=== PATIENT | male | born 1940 | race Caucasian/White ===

== ENCOUNTER 2018-09-30 20:02 | Emergency (ER) | payer MEDICARE, SELFPAY ==
[2018-09-30 20:02] VITALS: BP 175/96; PULSE 70; RESP 18; TEMP 37.8; O2SAT 96; BMI 36.0
--- NOTE | 2018-09-30 20:12 | EKG12_ITS ---
Test Reason : CP Blood Pressure : / mmHG Vent. Rate : 070 BPM Atrial Rate : 070 BPM P-R Int : 230 ms QRS Dur : 102 ms QT Int : 362 ms P-R-T Axes : 051 -64 086 degrees QTc Int : 390 ms Sinus rhythm with 1st degree A-V block Left axis deviation Minimal voltage criteria for LVH, may be normal variant Septal infarct , age undetermined Abnormal ECG Confirmed by BOO SHEPPARD, EMMA ([id number]), food editor GRACIELA GIMENEZ ([id number]) on 10/01/2018 1:46:48 PM Referred By: CARLEY Confirmed By:EMMA HADDAD MD
--- NOTE | 2018-09-30 20:15 | RAD_ITS ---
STUDY: X-RAY CHEST REASON FOR EXAM: Male, 77 years old. Chest tightness and cough TECHNIQUE: Single frontal view of the chest. COMPARISON: None. FINDINGS: Median sternotomy wires. The lungs are clear and expanded. There is no demonstrated pleural abnormality. Prominent cardiac silhouette. Normal mediastinum and bette. Normal visualized pulmonary arteries. There is atherosclerotic tortuosity of the aortic arch and descending thoracic aorta. Normal visualized thoracic spine. There is degenerative osteoarthritis of the bilateral shoulders. There is no demonstrated abnormality of the visualized soft tissue structures of the upper abdomen. RAD/Chest 1 View (Portable) IMPRESSION: No acute pulmonary findings. Electronically Signed: Nuno Navarro MD at 20:30 EDT Tel , Service support ,
--- NOTE | 2018-09-30 20:16 | ED.RN ---
NO OLD EKGS IN MUSE
[2018-09-30 20:27] VITALS: PULSE 74; RESP 16
[2018-09-30] MEDS: Ipratropium/Albuterol Sulfate 3 ML AMPUL.NEB INHALATION (20:27)
[2018-09-30 20:50] VITALS: O2SAT 95
[2018-09-30] MEDS: 0.9% Normal Saline 1,000 ML 100 ML IV (20:51)
--- NOTE | 2018-09-30 21:09 | ED.VIS.GEN ---
History of Present Illness Chief Complaint: Chest Pain Informant: Patient Onset: Today Context: Gradual Onset Timing: Continuous Current Severity: Mild Maximum Severity: Moderate Narrative: The patient presents to the emergency department cough and shortness of breath. He states for the past 10 days, he had upper respiratory symptoms. He states he has had a lot of nasal drainage and posterior throat drainage. He states today, he had a lot of drainage and felt like he was choking. He states he felt like he could not get the mucus up and felt tightness across his chest. He states that his cough has been worsening. He denies any exertional pain. The pain was fleeting and he now feels back to normal. He does have history of prior valve repair. He is not on anticoagulants. Prior similar symptoms: No Recent Illness/Hospitalization: No Past Medical History - Allergies and Home Meds Allergies/Adverse Reactions: Allergies No Known Allergies Allergy (Verified 09/30/18 20:02) Primary Care Physician: Azar Corbett MD [Primary Care Provider] - Prior records reviewed: Yes Past Medical History: - - Past medical history reviewed Lives: With Family Smoking Status: Never smoker Alcohol: Occasional Drugs: None Review of Systems General: Reports: Malaise Eyes: Denies: Visual changes - bilaterally, Diplopia ENT: Reports: Rhinorrhea Cardiovascular: Reports: Chest pain Respiratory: Reports: Cough Gastrointestinal: Denies: Abdominal pain, Nausea, Vomiting, Diarrhea, Melena, Hematochezia Genitourinary: Denies: Dysuria, Hematuria, Frequency Musculoskeletal: Denies: Back pain, Extremity Pain Skin: Denies: Rash, Wounds Neurological: Denies: Headache, Weakness, Numbness Endocrine: Denies: Polyuria Hematologic: Denies: Easy bruising Physical Exam Vital Signs/Narrative: Vital Signs Temp Pulse Resp BP Pulse Ox 09/30/18 20:50 95 09/30/18 20:27 74 16 09/30/18 20:02 100.0 F H 70 18 175/96 H 96 Inital Vital Signs reviewed: Yes General: Well nourished, Well developed, No Acute Distress Head: Normocephalic, Atraumatic Eyes: Perrl, EOMI ENT: Moist mucous membranes, No rhinorrhea Neck: Supple, Nontender Cardiovascular: Regular rate, Regular rhythm, No murmurs Respiratory: No distress, Chest nontender, Wheezing. Negative for: CTA bilaterally Abdomen: Soft, Nontender, Nondistended, Normal bowel sounds Back: Nontender, Normal Inspection Extremities: Nontender, No edema Skin: Normal color, No rash Neurological: Alert, Oriented x3, Cranial nerves II-XII grossly intact, Normal Strength, Normal Sensation Psychological: Normal affect, Normal Mood Diagnostic/Tx/Re-eval Chest X-Ray - ED: 2 View, Normal, Heart, Lungs Clinical Impression(s) from Imaging Studies Chest X-Ray 09/30/18 20:15 IMPRESSION: No acute pulmonary findings. Electronically Signed: Nuno Navarro MD at 20:30 EDT Tel , Service support , Abnormal Lab Results 09/30/18 09/30/18 09/30/18 20:41 20:41 20:41 WBC 10.0 RBC 5.63 Hgb 17.3 H Hct 51.6 MCV 91.7 MCH 30.7 MCHC 33.5 RDW 13.2 RDW Differential 43.7 Plt Count 208 MPV 10.7 Immature Gran % (Auto) 0.400 Neut % (Auto) 64.2 Lymph % (Auto) 19.9 Republic % (Auto) 9.6 Eos % (Auto) 5.4 H Baso % (Auto) 0.5 Absolute Neuts (auto) 6.4 Absolute Lymphs (auto) 1.99 Total Counted Not Reportable Sodium 136 Potassium 4.3 Chloride 104 Carbon Dioxide 27.0 Anion Gap 5 BUN 28 H Creatinine 1.19 Estim Creat Clear Calc 47.06 Est GFR (MDRD) Af Amer 76 Est GFR (MDRD) Non-Af 63 BUN/Creatinine Ratio 23.5 H Glucose 108 H Lactic Acid 1.3 Calcium 9.3 Troponin I < 0.015 - Rhythm Strip Rhythm Strip: Sinus Rhythm Ectopy: None - EKG Initial EKG Interpretation: Sinus Rhythm, No Acute Injury Pattern Prior: Unchanged - Medical Decision Making The patient symptoms to see primary pulmonary. He has coarse lung sounds with some wheezing throughout. His x-ray does not show focal infiltrative process. He has mild leukocytosis. He was given an nebulized breathing treatment. He had marked improvement of his aeration. Cardiac enzymes are normal. His EKG was unchanged. The patient was able to ambulate through the emergency department without hypoxia or dyspnea. At this point, I am going to treat him for an infectious bronchitis given his low-grade fever and productive sputum. He will be kept on prednisone, antibiotics, and an inhaler. He is comfortable with this plan of care. ED Disposition - Plan for ED Patient: Disposition: Home or Assisted Living Diagnosis: Acute bronchitis Instructions: Acute Bronchitis Prescriptions: Prednisone [Deltasone] 60 mg PO DAILY #15 tab Prescription Printed levoFLOXacin tablet [Levaquin] 500 mg PO DAILY #6 tab Prescription Printed Referrals: Azar Corbett MD [Primary Care Provider] -
[2018-09-30 21:10] LABS: Absolute Lymphocyte Count 1.99 X10^3/ul (0.83-4.51); Absolute Neutrophil Count 6.4 X10^3/uL (2.0-7.7); Basophil# 0.05 X10^3/uL; Basophil% 0.5 % (0-1); Eosinophil# 0.54 X10^3/uL; Eosinophils% 5.4 % (0-5); Hematocrit 51.6 % (40-54); Hemoglobin 17.3 g/dl (13.0-16.5); Lymphocyte # 1.99 X10^3/ul (4.0); Lymphocyte % 19.9 % (19-41); Mean Corp Hgb Conc 33.5 g/gl (32-36); Mean Corpuscular Hgb 30.7 pg (27.0-32.0); Mean Corpuscular Volume 91.7 fL (80-94); Mean Platelet Vol. 10.7 fl (6.2-12.0); Monocyte# 0.96 X10^3/uL; Monocyte% 9.6 % (0-10); Neutrophil % 64.2 % (47-70); Platelet Count 208 K/mm3 (150-450); RBC Distribution Width CV 13.2 % (11.6-14.6); RBC Distribution Width SD 43.7 fl (35.1-43.9); Red Blood Count 5.63 M/mm3 (4.6-6.2)
[2018-09-30 21:11] LABS: POSITIVE COUNT NO; POSITIVE DIFFERENTIAL NO; POSITIVE MORPHOLOGY NO
[2018-09-30 21:16] LABS: BUN 28 mg/dL (7-18); Creatinine, Serum 1.19 mg/dL (0.70-1.30); Glucose 108 mg/dL (74-106)
[2018-09-30 21:17] LABS: Anion Gap 5 (5-15); BUN/Creat Ratio 23.5 RATIO (10-20); Calcium,Total 9.3 mg/dL (8.5-10.1); Chloride 104 mmol/L (98-107); EST Glomerular Filtration Rate 63 mL/min (>60); Est Glom Filt Rate - Afr Amer 76 mL/min (>60); Estimated Creatinine Clearance 47.06 ml/min; Potassium 4.3 mmol/L (3.5-5.1); Sodium Level 136 mmol/L (136-145)
[2018-09-30 21:24] VITALS: BP 117/76; PULSE 66; RESP 18; O2SAT 95
[2018-09-30 21:30] LABS: Lactic Acid 1.3 mmol/L (0.4-2.0)
[2018-09-30 21:56] VITALS: O2SAT 96
[2018-09-30] MEDS: predniSONE 20 MG Tablet 60 MG PO (22:30)
[2018-09-30] MEDS: levoFLOXacin 500 MG Tablet PO (22:30)
[2018-09-30 22:36] VITALS: BP 128/72; PULSE 65; RESP 16; O2SAT 95
--- NOTE | 2018-09-30 22:42 | ED.RN ---
REVIEWED D/C INSTRUCTIONS, FOLLOW UP CARE, PRESCRIPTIONS AND S/S THAT WOULD WARRANT A RETURN TO THE ED WITH PT. PT VERBALIZED AN UNDERSTANDING AND DENIES FURTHER QUESTIONS FOR THIS RN. PT SKIN P/W/D, RESP EVEN AND UNLABORED, PT A&O X 3, NO DISTRESS NOTED. PT AMBULATED OUT OF ED, GAIT STEADY.
== END 2018-09-30 22:44 | disposition home or self-care (01) ==
LOC: ED 20:43
PROVIDERS: Emergency Provider Emergency Medicine; Family Provider Family Medicine; PCP Family Medicine
DX: J20.9 Acute bronchitis, unspecified (principal)
CPT/HCPCS: 36415; 71045; 80048; 83605; 84484; 85025; 87040; 93005; 94640; 96360; 96361; 99285; J7030; A4216

== ENCOUNTER 2019-11-26 12:12 | Observation (INO) | payer MEDICARE, SELFPAY ==
--- NOTE | 2019-11-17 10:47 | EKG12_ITS ---
Test Reason : PREOP Blood Pressure : / mmHG Vent. Rate : 061 BPM Atrial Rate : 061 BPM P-R Int : 368 ms QRS Dur : 106 ms QT Int : 386 ms P-R-T Axes : 028 -58 115 degrees QTc Int : 388 ms Sinus rhythm with 1st degree A-V block Left axis deviation Septal infarct , age undetermined Abnormal ECG Confirmed by BOO SHEPPARD, EMMA ([id number]), make up editor KOKO COX ([id number]) on 11/18/2019 9:21:57 AM Referred By: Joel Corbett Confirmed By:EMMA HADDAD MD
[2019-11-17 11:12] LABS: Absolute Lymphocyte Count 2.67 X10^3/uL (0.83-4.51); Absolute Neutrophil Count 6.3 X10^3/uL (2.0-7.7); Basophil% 0.9 % (0-1); Eosinophil# 0.92 X10^3/uL; Eosinophils% 8.6 % (0-5); Hematocrit 51.1 % (40-54); Hemoglobin 16.7 g/dL (13.0-16.5); Lymphocyte # 2.67 X10^3/ul (4.0); Lymphocyte % 24.9 % (19-41); Mean Corp Hgb Conc 32.7 g/dL (32-36); Mean Corpuscular Hgb 30.4 pg (27.0-32.0); Mean Corpuscular Volume 93.1 fL (80-94); Mean Platelet Vol. 10.3 fl (6.2-12.0); Monocyte# 0.72 X10^3/uL; Monocyte% 6.7 % (0-10); NRBC Flagged by Analyzer 0 % (0-5); Neutrophil # 6.27 X10^3/uL (2.7-7.7); Neutrophil % 58.5 % (47-70); Platelet Count 267 K/mm3 (150-450); RBC Distribution Width CV 13.3 % (11.6-14.6); RBC Distribution Width SD 44.9 fl (35.1-43.9); Red Blood Count 5.49 M/mm3 (4.6-6.2); White Blood Count 10.7 K/mm3 (4.4-11.0)
[2019-11-17 12:09] LABS: Anion Gap 5 (5-15); BUN 29 mg/dL (7-18); BUN/Creat Ratio 24.6 RATIO (10-20); Calcium,Total 9.4 mg/dL (8.5-10.1); Chloride 100 mmol/L (98-107); Creatinine, Serum 1.18 mg/dL (0.70-1.30); EST Glomerular Filtration Rate 63 mL/min (>60); Est Glom Filt Rate - Afr Amer 76 mL/min (>60); Glucose 107 mg/dL (74-106); Potassium 4.4 mmol/L (3.5-5.1); Sodium Level 135 mmol/L (136-145)
--- NOTE | 2019-11-17 20:28 | HP.PCM_ITS ---
History and Physical History and Physical [facility] Patient Name: Beto Kate : 1940 From: RYAN LIAO PA-C DATE OF SURGERY: 11/26/2019 SCHEDULED PROCEDURE: right total hip arthroplasty HISTORY OF PRESENT ILLNESS: Preoperative history and physical exam was performed on November 17, 2019. This is an 78-year-old male who presents today for preoperative visit for an upcoming right total hip arthroplasty. Patient has had ongoing pain for the past several months which has been progressively been getting worse. Pain has been intermittent, aching, sharp. He has increased pain going up and down stairs and walking. Pain can reach 7/10 with activities. He has increased pain and difficulty getting up from seated position. He does have start up pain. Patient's pain is located in his groin. He denies any low back pain or numbness and tingling. Patient has attempted Celebrex, tramadol, rest with minimal relief. He uses a wheelchair on occasion. He has been using a cane for ambulatory assistance. He currently denies any chest pain, shortness of breath, fevers chills, or recent infections. We are obtaining surgical clearance from his primary care physician Dr. Azar Corbett. Patient also has been seen in the past for his heart with previous heart stent and valve replacement in 2007. Patient sees Dr. Medina who is his [facility] psychiatrist. After failing conservative measures and discussing treatment options with Dr. Joel Corbett, the patient does wish to proceed with a right total hip arthroplasty. REVIEW OF SYSTEMS: ROS: Const: Denies change in appetite, fever and weight change. CV: Denies chest pain, heart murmur and irregular heartbeat. Resp: Denies cough, pneumonia, shortness of breath, tuberculosis and wheezing. GI: Denies constipation, diarrhea, heartburn, nausea, rectal itching, bloody stools and vomiting. : Denies incontinence. Musculo: Reports trouble walking and weakness, but denies leg swelling and pain. Skin: Denies Raynaud's, history of shingles and tattoo. Neuro: Denies ambulatory dysfunction, dizziness, numbness/tingling and tremor. Psych: Denies anxiety, insomnia and stress. Rafy/Lymph: Denies anemia, bleeding/bruising tendency and past transfusion. Reviewed, no changes. PAST MEDICAL HISTORY: Advance Care Plan: No Advance Directives Effective Date: 11/13/2019 PMH: Medical Problems: Arthritis, Cancer, Coronary Artery Disease (CAD), Hard of Hearing Accidents: Fracture - (1977) SKULL Surgical Hx: Heart Stent - (2007) Heart Valve Replacement - (2018) Artery Clean Out Anesthesia Complications: None Assistive Devices: Glasses, Hearing Aid, Cane Reviewed, no changes. SOCIAL HISTORY: SH: Marital: .Occupation: Retired.Work Status: Retired.Hand Dominance: Right- handed. Personal Habits: Cigarette Use: Never Smoked Cigarettes.Smokeless Tobacco: Never Used Smokeless Tobacco.E-Cigarette Use: Never used.Alcohol: Daily.Drug Use: Denies Use.Enjoy Exercising: Exercises 1-3 X/Week. Reviewed, no changes. VITALS: Ht: 64 Wt: 225lb Wt k.060 BMI: 38.6 BP: 138/82 Pulse: 61 Resp: 14 T: 96.9 T: 36.1C ALLERGIES: No Known Drug Allergy MEDICATIONS: Celecoxib 200 mg Take 1 capsule by mouth 2 times daily, Nabumetone 500 mg Take 1 tablet by mouth 2 times daily, Lisinopril 10 mg take 1 tablet by mouth daily, Metoprolol Tartrate 25 mg take 1 tablet by mouth twice a day, Rosuvastatin Calcium 40 mg take 1 tablet by mouth once daily, Fenofibric Acid 135 mg take 1 tablet by mouth once daily, Aspirin Adult 325 mg Take 325 mg by mouth daily, Latanoprost 0.005 % 1 drop nightly, Timolol Maleate 0.5 % (Daily) daily, Tramadol HCL 50 mg 1-2 by mouth every 6 hours as needed pain PRE-OP EXAM: General appearance:NORMAL Other: Eyes: Conjunctivae and lids: NORMAL Pupils: ERR Ears, Nose, Mouth, and Throat: NORMAL Other: Inspection of lips, teeth and gums: NORMAL Other: Neck: Examination of neck: no masses noted. Respiratory: Assessment of respiratory effort: NORMAL Other: Auscultation of lungs: clear to auscultation no wheezes, rhonchi or rales. Cardiovascular: Auscultation of heart: regular rate and rhythm, positive systolic murmur, Exam of carotid arteries: NORMAL Other: Gastrointestinal: Exam of abdomen: soft, nontender, nondistended bowel sounds present. PHYSICAL EXAMINATION: Patient walks with an antalgic gait with use of a cane. Right hip is cool to touch without erythema or signs of infection. Patient does have obligatory external rotation with flexion. Range of motion: Flexion 75, internal rotation to degrees, external rotation 15. He has increased pain with active range of motion and passive range of motion of the hip. Sensation intact to light touch. Neurovascularly intact. IMAGING STUDIES: X-rays of the right hip reveal joint space narrowing with subchondral sclerosis, osteophyte formation consistent with severe osteoarthritis with associated subchondral cysts in both the femoral head and acetabular weightbearing area. IMPRESSION: 1. Severe right hip osteoarthritis 2. Coronary artery disease 3. Previous prostate cancer 4. Heart stent and heart valve replacement 2007 PLAN: Dr. Joel Corbett did discuss and review with the patient all treatment options including surgical versus nonsurgical options. Patient does wish to proceed with the above-stated procedure. Potential risks, benefits, and complications of the procedure were discussed in detail including but not limited to , infection, nerve and blood vessel damage, persistent pain, numbness, tingling, paresthesias, blood clot, pulmonary embolism, and requirement for possible further surgery. The patient expressed full understanding and has no further questions for the doctor. Patient does agree to proceed with the above-stated procedure and has signed the surgery consent form. We discussed the current risks associated with COVID 19. This does include the risk of exposure while in the hospital. Patient was reassured local hospitals have low infection rates and are taking all necessary precautions to avoid exposure to patients. In addition, we discussed strategies that can be used to help limit exposure including those that limit the patient's time in the hospital. Also using strategies to limit the patient's need for continued inpatient services after being discharged from the hospital. Patient was notified that we will need to comply with any screening or testing the hospital wishes to perform or that surgery may be delayed for any positive results. This dictation was created using voice recognition software. Phonetic and/or grammatical errors may exist. ___ I have re-examined the patient. There are no clinical changes since date of exam. ___ See progress notes for changes. ___ Dictated on admission Date: Time: Signature:
[2019-11-18 08:06] LABS: Magnesium 2.4 mg/dL (1.6-2.6)
[2019-11-26] VITALS (14 sets, daily range): BP systolic 95–157; BP diastolic 57–98; PULSE 66–82; RESP 15–18; TEMP 36–37.2; O2SAT 87–100; BMI 35.2
[2019-11-26] MEDS: Acetaminophen 500 MG Tablet 1000 MG PO ×2 (09:21→17:15)
[2019-11-26] MEDS: Gabapentin 600 MG Tablet PO (09:22)
[2019-11-26] MEDS: Celecoxib 200 MG Capsule 400 MG PO (09:22)
[2019-11-26] MEDS: Lactated Ringers 1,000 ML 999 ML IV ×2 (09:25→12:45)
[2019-11-26 09:35] LABS: Bedside Glucose 183 mg/dL (70-110)
[2019-11-26] MEDS: Insulin Lispro 100 UNIT/ML INSULN.PEN SC (09:54)
[2019-11-26] MEDS: Lactated Ringers 1,000 ML 75 ML IV (10:30)
[2019-11-26] MEDS: Cefazolin 2 GM in 0.9% Normal Saline 100 ML IV (10:37)
--- NOTE | 2019-11-26 10:45 | RAD_ITS ---
STUDY: X-RAY - PELVIS AND RIGHT HIP REASON FOR EXAM: Male, 78 years old. RT TOTAL ANTERIOR HIP. 5.4 SEC FL. TECHNIQUE: 1 views of the pelvis and hip. COMPARISON: None. FINDINGS: Intraoperative imaging provided for right hip replacement. There is good alignment. RAD/Hip 1 view with Pelvis IMPRESSION: Status post right total hip replacement. There is good alignment. Electronically Signed: Ayan Ryo, at 12:37 EDT , Service support ,
--- NOTE | 2019-11-26 12:16 | PCM.OPRPT ---
Report of Operation Date of Procedure: 11/26/19 Pre-Operative Diagnosis: Right hip primary osteoarthritis Post-Operative Diagnosis: Right hip primary osteoarthritis Surgery/Procedure Performed:: Minimally invasive direct anterior right total hip replacement Description of Surgical Findings:: Stable hip with equal leg lengths [employer] vice principal: Lucía Muro Type of Anesthesia:: General Anesthesiologist: Zeeshan Jennings Special Medications: 2 g Ancef, 1 g TXA at incision, 1 g TXA closure, 10 mg Decadron, joint cocktail (5 mg Duramorph, 30 mL of 0.5% Ropivicaine, 1000 units of epinephrine, 30 mg of Toradol) Specimen's removed: Bony cuts Estimated Blood Loss (mL): 200 Fluids Replaced: 1000 mL crystalloid Description of Procedure: Components used: 1. Accolade 2 Ema femoral stem size 5 127? 2. [place] trident 2 acetabular shell size 52 mm 3. [place] X3 polyethylene E 4. Ema Biolox delta 36mm, -5mm femoral head Brief history operative indications: 78 yo m who failed conservative measures for their hip osteoarthritis. X-rays were consistent with osteoarthritis including joint space narrowing, osteophyte formation and subchondral cysts. Total hip replacement was discussed with the patient with risks and benefits including but not limited to blood loss, DVTs, PEs, neurovascular damage, dislocation, general risks of anesthesia including loss of life. Patient demonstrated an understanding medical clearance is obtained the patient was consented for surgery. Procedure: On the date of procedure the patient's R hip was marked in the preoperative area. Patient was then taken back to the operating room where anesthesia assumed control of the C-spine and airway and administered anesthetic. Patient was transferred to the operating table and placed in the supine position. The hips were placed at the break of the bed and a sacral bump was placed. The R lower extremity was then prepped out in a sterile fashion using chlorhexidine while the surgeon scrubbed. The PA was vital in the positioning of the patient. Upon reentering the room the R lower extremity was draped in the standard orthopedic fashion and the incision was marked. A timeout was called and everyone agreed upon the side, the site, the procedure be performed, antibody given, and patient's identity. At this time incision was made through skin, subcutaneous tissue, and fat down to fascia. The fascia was then incised and the TFL was retracted laterally. A retractor was placed on the lateral border of the femoral neck. Attention was directed to the inferior portion of the approach and all crossing vessels were identified and appropriately coagulated. A retractor was then placed on the medial portion of the femoral neck. The anterior capsule was then cleared of all soft tissue and then H shaped capsulotomy was made. The retractors were then placed inside the capsule. The femoral neck was identified and a cleanup cut was made. At this time a power corkscrew was used to remove the femoral head. Attention was then turned toward the acetabulum where the soft tissues were appropriately retracted and the acetabulum was sequentially reamed to 52 mm. A 52 mm cup was then selected and impacted into place. Acetabular liner was impacted into place and locking mechanism was verified. The position of the acetabular cup was then verified under live fluoroscopy. Attention was then turned to the femur. Soft tissue releases on the medial and lateral femoral neck were appropriately done, the leg was externally rotated and lateralized. A Calixto retractor was placed medially and proximally to the greater trochanter this allowed appropriate visualization and exposure of the femoral canal. Rongeour was then used to remove excess lateral bone. A canal finder and entry broach were used to open the proximal canal. Once we verified we were down the femoral canal we subsequently broached up to a size 5 femur. The appropriate neck was placed in the previously selected head was trialed with a -5 mm neck. Traction was pulled and the hip was reduced with internal rotation. Once it was appropriately reduced and stability was checked. There was minimal shuck, equal leg lengths and appropriate stability with hyperextension and external rotation as well as with 90? flexion and internal rotation. Fluoroscopy was then also used to verify the position of the components and leg lengths using the contralateral side for comparison. The trial components were then dislocated the proximal femur was again exposed and the components were removed from the wound. The final components were verified and opened. The wound was copiously irrigated out with normal saline. The acetabulum was checked for any residual debris. The final components were placed and impacted. Traction and internal rotation were again used to reduce the hip. After adequate reduction the hip remained stable with appropriate leg lengths. The final components were once again checked with live fluoroscopy and were found to be satisfactory. The wound was then copiously irrigated with normal saline once more, and hemostasis was obtained. Closure was then done using #1 Vicryl runner to close the fascia. A 2-0 vicryl interuppted sutures were used to close the subcutaneous skin. A 3-0 Monocryl and Steri-Strips were used for final skin closure. A Silverlon dressing was placed. Patient was awakened by anesthesia and transferred to the [facility]. Patient was then transferred to the PACU for recovery. Postoperative plan: Patient will get 24 hours postop antibiotics. Patient will get in-house physical therapy and will be weight-bear as tolerated. Patient will follow up in office in 2 weeks for a wound check and x-rays. - Complications No intraoperative complications - Admit VTE Documentation VTE Present on Admission: No VTE Mechan Device Prophylaxis: SCD's, Thigh High CHIP Hose VTE Pharm Prophylaxis ordered?: Yes
--- NOTE | 2019-11-26 13:10 | RAD_ITS ---
STUDY: X-RAY - PELVIS AND RIGHT HIP REASON FOR EXAM: Male, 78 years old. POST OP RIGHT TOTAL HIP ANTERIOR APPROACH TECHNIQUE: 2 views of the pelvis and hip. COMPARISON: Comparison is made with prior examination done earlier today. FINDINGS: There is a non-specific bowel gas pattern. Surgical clips are seen overlying the left inguinal region. The patient is status post right total hip replacement. There is good alignment. Postoperative soft tissue changes. RAD/Hip Min 2 Views (Portable) IMPRESSION: Status post right total hip replacement. There is good alignment. Postoperative soft tissue changes. Electronically Signed: Ayan Roy, at 13:43 EDT , Service support ,
[2019-11-26 13:46] LABS: Bedside Glucose 137 mg/dL (70-110)
[2019-11-26] MEDS: Lactated Ringers 1,000 ML 125 ML IV ×2 (14:00→16:54)
[2019-11-26] MEDS: Aspirin 81 MG TAB.CHEW PO (17:15)
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
[2019-11-26] MEDS: Ensure Surgery 237 ML LIQUID PO (18:11)
[2019-11-26] MEDS: Cefazolin 1 GM/50 ML BAG IV (18:20)
[2019-11-26] MEDS: Ketorolac 15 MG/ML Vial IV (21:56)
[2019-11-26] MEDS: Atorvastatin Calcium 80 MG Tablet PO (21:57)
[2019-11-26] MEDS: Senna/Docusate Sodium 1 Tablet 2 TABLET PO (21:57)
[2019-11-26] MEDS: Latanoprost 0.005% 1 Bottle 1 DRP EACH EYE (21:58)
[2019-11-26] MEDS: Timolol 0.5% 5ML OPTH.BTL 1 DRP EACH EYE (21:59)
[2019-11-26] MEDS: Metoprolol Tartrate 25 MG Tablet PO (22:00)
[2019-11-27 01:59] VITALS: BP 120/66; PULSE 68; RESP 18; TEMP 36.9; O2SAT 99
[2019-11-27] MEDS: Acetaminophen 500 MG Tablet 1000 MG PO ×2 (02:02→10:19)
[2019-11-27] MEDS: Cefazolin 1 GM/50 ML BAG IV (02:03)
[2019-11-27 06:42] LABS: Hematocrit 36.2 % (40-54); Hemoglobin 11.2 g/dL (13.0-16.5); Mean Corp Hgb Conc 30.9 g/dL (32-36); Mean Corpuscular Hgb 30.2 pg (27.0-32.0); Mean Corpuscular Volume 97.6 fL (80-94); Mean Platelet Vol. 10.4 fl (6.2-12.0); Platelet Count 186 K/mm3 (150-450); RBC Distribution Width CV 13.6 % (11.6-14.6); Red Blood Count 3.71 M/mm3 (4.6-6.2); White Blood Count 11.7 K/mm3 (4.4-11.0)
[2019-11-27 07:08] LABS: Anion Gap 6 (5-15); BUN 27 mg/dL (7-18); Calcium,Total 7.7 mg/dL (8.5-10.1); Chloride 105 mmol/L (98-107); EST Glomerular Filtration Rate 76 mL/min (>60); Est Glom Filt Rate - Afr Amer 92 mL/min (>60); Estimated Creatinine Clearance 55.08 ml/min; Glucose 102 mg/dL (74-106); Potassium 4.3 mmol/L (3.5-5.1); Sodium Level 133 mmol/L (136-145)
--- NOTE | 2019-11-27 07:33 | PCM.PN.ORT ---
Subjective: The patient was sitting in bedside chair upon examination. Patient denies any chest pain, shortness of breath, dizziness, lightheadedness, nausea or vomiting, or calf pain. Pain is controlled on medications. No adverse overnight events. Patient states his right hip is doing very well and he has minimal pain. Patient was up walking yesterday the halls. Patient does wish to try to go home today. Objective: Vital signs stable and afebrile. Patient is able to plantarflex and dorsiflex actively. Sensation is intact to light touch to saphenous, sural, superficial and deep peroneal, and tibial distribution. Dressing is clean dry and intact. Negative Homans bilaterally, negative signs and symptoms of DVT. - Physical Exam Vitals/I&O's: Vital Signs Temp Pulse Resp BP Pulse Ox 98.4 F 68 18 120/66 99 11/27/19 01:59 11/27/19 01:59 11/27/19 01:59 11/27/19 01:59 11/27/19 01:59 Oxygen Flow Rate (L/min) 2 Oxygen Delivery Method Nasal Cannula Weight: 101.9 kg Body Mass Index (BMI) 35.2 Finger Stick Blood Glucose 137 Intake and Output for Last 24 Hours 11/25/19 11/26/19 11/27/19 23:59 23:59 23:59 Intake Total 4744.33 / 4744.33 1160.42 / 1160.42 Output Total 400 / 400 300 / 300 Balance 4344.33 / 4344.33 860.42 / 860.42 General: Alert, Oriented x3, Cooperative, No apparent distress Laboratory Results 11/26/19 09:20: POC Glucose 183 H 11/26/19 13:32: POC Glucose 137 H 11/27/19 06:14: WBC 11.7 H, RBC 3.71 L, Hgb 11.2 L, Hct 36.2 L, MCV 97.6 H, MCH 30.2, MCHC 30.9 L, RDW Std Deviation 49.0 H, RDW Coeff of Dre 13.6, Plt Count 186, MPV 10.4 11/27/19 06:14: Sodium 133 L, Potassium 4.3, Chloride 105, Carbon Dioxide 22.0, Anion Gap 6, BUN 27 H, Creatinine 1.00, Estim Creat Clear Calc 55.08, Est GFR (MDRD) Af Amer 92, Est GFR (MDRD) Non-Af 76, BUN/Creatinine Ratio 27.0 H, Glucose 102, Calcium 7.7 L Current Medications Acetaminophen (Tylenol) 1,000 mg PO Q8H [facility] Last Admin: 11/27/19 02:02 Dose: 1,000 mg Documented by: Aspirin (Ecotrin) 325 mg PO BID [facility] Atorvastatin Calcium (Lipitor) 80 mg PO QHS [facility] Last Admin: 11/26/19 21:57 Dose: 80 mg Documented by: Celecoxib (Celebrex) 200 mg PO DAILY [facility] Enteral Nutritional Formula (Ensure Surgery) 237 ml PO TIDCM [facility] Last Admin: 11/26/19 18:11 Dose: 237 ml Documented by: Famotidine (Pepcid) 20 mg PO DAILY [facility] Fenofibrate ([facility]or) [facility] Insulin Human Lispro (Humalog Kwikpen ([facility])) 1 - 6 unit SC Q4H PRN PRN; Protocol PRN Reason: BG>/= 180, SEE PROTOCOL Last Admin: 11/26/19 09:54 Dose: 1 unit Documented by: Ketorolac Tromethamine (Toradol ([facility])) 15 mg IV Q6H PRN PRN PRN Reason: Pain Score 1-5/10 Last Admin: 11/26/19 21:56 Dose: 15 mg Documented by: Latanoprost (Xalatan Opthalmic) 1 drop EACH EYE QHS [facility] Last Admin: 11/26/19 21:58 Dose: 1 drop Documented by: Lisinopril (Zestril) 10 mg PO DAILY [facility] Metoprolol Tartrate (Lopressor (Beta Eve)) 25 mg PO BID [facility] Last Admin: 11/26/19 22:00 Dose: 25 mg Documented by: Morphine Sulfate () 2 - 4 mg IV Q2H PRN PRN PRN Reason: Pain Score 4-10/10 Ondansetron HCl (Zofran) 4 mg IV Q8H PRN PRN PRN Reason: NAUSEA Oxycodone HCl (Oxyir) 5 - 10 mg PO Q4H PRN PRN PRN Reason: Pain Score 4-10/10 Promethazine HCl (Phenergan) 12.5 mg IM Q6H PRN PRN; Protocol PRN Reason: NAUSEA/VOMITING Senna/Docusate Sodium (Senokot-S, [place]-Colace) 2 tablet PO BID [facility] Last Admin: 11/26/19 21:57 Dose: 2 tablet Documented by: Timolol Maleate (Timoptic) 1 drop EACH EYE BID [facility] Last Admin: 11/26/19 21:59 Dose: 1 drop Documented by: Medical Necessity - Tobacco Use Smoking Status: Never smoker Tobacco Use: Non-smoker Assessment/Plan 1. S/P right direct anterior total hip arthroplasty POD #1 2. Continue Pain Medications: Tylenol and OxyIR 3. DVT Prophylaxis: Aspirin 325 mg twice daily for 4 weeks postoperatively. 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 I explained to him that we will do twice daily for 4 weeks and then he can go back to his once daily after that. 4. PT/OT: Weightbearing as tolerated 5. H & H: 11.2/36.2, asymptomatic. Secondary to acute blood loss from surgery 6. Reactive leukocytosis: Currently 11.7, afebrile. Patient did receive Decadron intraoperatively 7. Continue postoperative medical management per medicine: Appreciate assistance with managing patient while in hospital 8. Encouraged Incentive Spirometry 9. Disposition: Plan will be for possible discharge home today as long as patient is medically stable and pain is well controlled and tolerating physical therapy. Prescriptions will be E scribed to eric lakhani in [facility]. Patient will follow-up per postop instructions. He does have outpatient physical therapy established. I have reviewed the [place] Automated Rx Reporting System (OARRS) report for this patient for refill pattern and other prescriber involvement as part of the appropriate surveillance for the provision of acute and chronic controlled medications. The report was requested and reviewed on the date of this entry and was considered in the prescribing process.
--- NOTE | 2019-11-27 07:40 | DCINST_ITS ---
Discharge Diet: No Restrictions Discharge Activity: May Not Drive - while taking narcotic pain medications. May shower in (days): 3 - Dressing must be intact to skin. Turned dressing away from water Ice area for (Minutes): 20 - Every 1-2 hours while awake Weight Bearing Status: Weight bearing as tolerated Elevate: Operative Extremity Additional Activity Instructions:: Wear elastic stockings for 2 weeks. DO NOT use alcohol with narcotic pain medication. DO NOT make important decisions while taking narcotic medication. If you have problems with taking your medication (rash, itching, nausea, etc.) call the office at once. Call your doctor if your incision/area has: Increased Pain/ Swelling, Increased Redness, Foul Smelling Discharge Call your doctor if you observe: Fever of 101 or Higher Remove Dressing in (days):: 4 - Okay to remove dressing on December 01, 2019 Additional Instructions: Follow orthopedic postop instructions Allergies/Adverse Reactions: Allergies No Known Allergies Allergy (Verified 11/17/19 14:47) Medications to take at Discharge Latanoprost 0.005% [Xalatan Opthalmic] 1 drp EACH EYE QHS 09/30/18 Lisinopril [Prinivil] 10 mg PO DAILY 09/30/18 Metoprolol Tartrate 25 mg PO BID 09/30/18 Timolol 0.5% [Timoptic] 1 drp EACH EYE BID 09/30/18 Fenofibric Acid (Choline) [Fenofibric Acid] 135 mg PO DAILY 11/17/19 Rosuvastatin Calcium [Crestor] 40 mg PO DAILY 11/17/19 Acetaminophen [Tylenol] 1,000 mg PO Q8H #100 tab 11/27/19 Aspirin E.C. [Ecotrin] 325 mg PO BID tablet 11/27/19 Famotidine [Pepcid] 20 mg PO DAILY #30 tab 11/27/19 Oxycodone [Oxyir] 5 - 10 mg PO Q4H PRN PRN 4 Days #48 tab 11/27/19 Senna/Docusate Sodium [Senokot-S] 2 tab PO BID #10 tab 11/27/19 The following prescriptions were given: Oxycodone [Oxyir] 5 - 10 mg PO Q4H PRN PRN 4 Days #48 tab PRN Reason: Pain Score 4-10/10 Prescription Printed Famotidine [Pepcid] 20 mg PO DAILY #30 tab Transmission Status: Pending to [facility] Senna/Docusate Sodium [Senokot-S] 2 tab PO BID #10 tab Transmission Status: Pending to [facility] Acetaminophen [Tylenol] 1,000 mg PO Q8H #100 tab Transmission Status: Pending to [facility] Primary Care Physician: Azar Corbett MD [Primary Care Provider] - Test Results: Test results from this visit will be discussed in further detail at your follow- up appointment, if applicable. Please Follow Up With: [facility] When: 12/02/19 @ 8:30 am Please Follow Up With: Sawyer Cancino PA-C When: 12/10/19 @ 9:15 am
[2019-11-27 07:42] VITALS: BP 104/68; PULSE 75; RESP 18; TEMP 36.8; O2SAT 92
[2019-11-27 07:45] VITALS: RESP 18; O2SAT 92
[2019-11-27] MEDS: Fenofibrate 145 MG Tablet PO (07:48)
[2019-11-27 07:49] VITALS: BP 104/68; PULSE 75
[2019-11-27] MEDS: Metoprolol Tartrate 25 MG Tablet PO (07:49)
[2019-11-27] MEDS: Famotidine 20 MG Tablet PO (07:49)
[2019-11-27] MEDS: Ensure Surgery 237 ML LIQUID PO (07:49)
[2019-11-27] MEDS: Senna/Docusate Sodium 1 Tablet 2 TABLET PO (07:50)
--- NOTE | 2019-11-27 10:15 | CASEMGMT ---
EDMUND HERNANDEZ Face to Face with patient for initial transition planning/care coordination assessment. RN CM introduced self and role at [facility]. Patient lying in bed, alert and oriented. Patient willing to participate in assessment and is able to answer all questions appropriately. Care providers, pharmacy, and demographics verified. Patient wishes to discharge home and is setup with [facility] for outpatient therapy. Patient states he has no further needs or concerns at this time. CM to follow for discharge planning needs that may arise. PCP: Azar Corbett Specialists: norris Corbett Pharmacy: [facility] Insurance: [place] [employer] Prescription Benefit: yes Living Will/HPOA: yes, son Michael Kate LNOK: son, girlfriend Living Arrangements: Patient lives alone in 1 story home with 2 steps and railing to enter the home. Girlfriend will be staying with patient for a few days. Patient was independent at home prior to surgery. Transportation: Girlfriend [facility]: Patient states he has a shower chair, raised toilet, walker, grab bars, and wheelchair. Patient is setup with [facility] for outpatient therapy starting Sunday. Disposition Plan: Patient to discharge home with outpatient therapy, family support, and folllow-up plans in place. Leilani CORTEZ, RN, CM
[2019-11-27] MEDS: Timolol 0.5% 5ML OPTH.BTL 1 DRP EACH EYE (10:19)
[2019-11-27] MEDS: Aspirin E.C. 325 MG Tablet PO (10:26)
[2019-11-27] MEDS: Lisinopril 10 MG Tablet PO (10:26)
--- NOTE | 2019-11-27 11:08 | PN_ITS ---
<Marlo Horne - Last Filed: 11/27/19 11:08> Reason for Visit: No complaints. Significant pain this AM however improved with pain meds now resolved. No fever/chills. No cough/sob. No abd pain, nausea, or vomiting. Vitals/I&O's: Vital Signs Temp Pulse Resp BP Pulse Ox 98.3 F 75 18 104/68 92 11/27/19 07:42 11/27/19 07:49 11/27/19 07:45 11/27/19 07:49 11/27/19 07:45 Oxygen Flow Rate (L/min) 2 Oxygen Delivery Method Room Air Weight: 224 lb 10.417 oz Body Mass Index (BMI) 35.2 Finger Stick Blood Glucose 137 Intake and Output for Last 24 Hours 11/25/19 11/26/19 11/27/19 23:59 23:59 23:59 Intake Total 4744.33 / 4744.33 1160.42 / 1160.42 Output Total 400 / 400 300 / 300 Balance 4344.33 / 4344.33 860.42 / 860.42 General: Alert, Oriented x3, Cooperative HEENT: Atraumatic, PERRLA, EOMI, Normocephalic Neck: Supple, No JVD, Negative Carotid Bruits Lungs: Clear to auscultation, Normal air movement Cardiovascular: Regular rate, No murmurs Abdomen: Bowel Sounds Present, Soft, Non Tender Extremities: No edema, Capillary Refill Less than 3 Seconds Skin: No rashes, No breakdown Musculoskeletal: No Tenderness to Palpation of Joints or Extremities Neurological: Cranial nerves II-XII grossly intact Psych/Mental Status: Normal Affect, Appropriate Laboratory Results 11/26/19 13:32: POC Glucose 137 H 11/27/19 06:14: WBC 11.7 H, RBC 3.71 L, Hgb 11.2 L, Hct 36.2 L, MCV 97.6 H, MCH 30.2, MCHC 30.9 L, RDW Std Deviation 49.0 H, RDW Coeff of Dre 13.6, Plt Count 186, MPV 10.4 11/27/19 06:14: Sodium 133 L, Potassium 4.3, Chloride 105, Carbon Dioxide 22.0, Anion Gap 6, BUN 27 H, Creatinine 1.00, Estim Creat Clear Calc 55.08, Est GFR (MDRD) Af Amer 92, Est GFR (MDRD) Non-Af 76, BUN/Creatinine Ratio 27.0 H, Glucose 102, Calcium 7.7 L Current Medications Acetaminophen (Tylenol) 1,000 mg PO Q8H [facility] Last Admin: 11/27/19 10:19 Dose: 1,000 mg Documented by: Aspirin (Ecotrin) 325 mg PO BID [facility] Last Admin: 11/27/19 10:26 Dose: 325 mg Documented by: Atorvastatin Calcium (Lipitor) 80 mg PO QHS [facility] Last Admin: 11/26/19 21:57 Dose: 80 mg Documented by: Celecoxib (Celebrex) 200 mg PO DAILY [facility] Enteral Nutritional Formula (Ensure Surgery) 237 ml PO TIDCM [facility] Last Admin: 11/27/19 07:49 Dose: 237 ml Documented by: Famotidine (Pepcid) 20 mg PO DAILY [facility] Last Admin: 11/27/19 07:49 Dose: 20 mg Documented by: [facility] (T[facility]or) [facility] Last Admin: 11/27/19 07:48 Dose: 145 mg Documented by: Insulin Human Lispro (Humalog Kwikpen ([facility])) 1 - 6 unit SC Q4H PRN PRN; Protocol PRN Reason: BG>/= 180, SEE PROTOCOL Last Admin: 11/26/19 09:54 Dose: 1 unit Documented by: Ketorolac Tromethamine (Toradol ([facility])) 15 mg IV Q6H PRN PRN PRN Reason: Pain Score 1-5/10 Last Admin: 11/26/19 21:56 Dose: 15 mg Documented by: Latanoprost (Xalatan Opthalmic) 1 drop EACH EYE QHS [facility] Last Admin: 11/26/19 21:58 Dose: 1 drop Documented by: Lisinopril (Zestril) 10 mg PO DAILY [facility] Last Admin: 11/27/19 10:26 Dose: 10 mg Documented by: Metoprolol Tartrate (Lopressor (Beta Eve)) 25 mg PO BID [facility] Last Admin: 11/27/19 07:49 Dose: 25 mg Documented by: Morphine Sulfate () 2 - 4 mg IV Q2H PRN PRN PRN Reason: Pain Score 4-10/10 Ondansetron HCl (Zofran) 4 mg IV Q8H PRN PRN PRN Reason: NAUSEA Oxycodone HCl (Oxyir) 5 - 10 mg PO Q4H PRN PRN PRN Reason: Pain Score 4-10/10 Promethazine HCl (Phenergan) 12.5 mg IM Q6H PRN PRN; Protocol PRN Reason: NAUSEA/VOMITING Senna/Docusate Sodium (Senokot-S, [place]-Colace) 2 tablet PO BID [facility] Last Admin: 11/27/19 07:50 Dose: 2 tablet Documented by: Timolol Maleate (Timoptic) 1 drop EACH EYE BID [facility] Last Admin: 11/27/19 10:19 Dose: 1 drop Documented by: STROKE Vital Signs/Narrative: Vital Signs Temp Pulse Resp BP Pulse Ox 11/27/19 07:49 75 104/68 11/27/19 07:45 18 92 11/27/19 07:42 98.3 F 75 18 104/68 92 Medical Necessity - Tobacco Use Smoking Status: Never smoker Tobacco Use: Non-smoker Assessment/Plan 1. osteoarthritis s/p right hip replacement POD#1 - Per Dr. Corbett. Mild leukocytosis likely reactive to surgery, no evidence of infectious process at this time. 2. HTN - stable, continue home meds 3. HLD - statin DVT ppx: per ortho 80 mg asa bid Thank you for the opportunity to participate in the care of this patient. This patient was seen by Marlo Horne PA-C under the supervision of Dr. Rodriguez <Martha Rodriguez E - Last Filed: 11/27/19 11:49> Vitals/I&O's: Vital Signs Temp Pulse Resp BP Pulse Ox 98.3 F 75 18 104/68 92 11/27/19 07:42 11/27/19 07:49 11/27/19 07:45 11/27/19 07:49 11/27/19 07:45 Oxygen Flow Rate (L/min) 2 Oxygen Delivery Method Room Air Weight: 224 lb 10.417 oz Body Mass Index (BMI) 35.2 Finger Stick Blood Glucose 137 Intake and Output for Last 24 Hours 11/25/19 11/26/19 11/27/19 23:59 23:59 23:59 Intake Total 4744.33 / 4744.33 1160.42 / 1160.42 Output Total 400 / 400 300 / 300 Balance 4344.33 / 4344.33 860.42 / 860.42 Laboratory Results 11/26/19 13:32: POC Glucose 137 H 11/27/19 06:14: WBC 11.7 H, RBC 3.71 L, Hgb 11.2 L, Hct 36.2 L, MCV 97.6 H, MCH 30.2, MCHC 30.9 L, RDW Std Deviation 49.0 H, RDW Coeff of Dre 13.6, Plt Count 186, MPV 10.4 11/27/19 06:14: Sodium 133 L, Potassium 4.3, Chloride 105, Carbon Dioxide 22.0, Anion Gap 6, BUN 27 H, Creatinine 1.00, Estim Creat Clear Calc 55.08, Est GFR (MDRD) Af Amer 92, Est GFR (MDRD) Non-Af 76, BUN/Creatinine Ratio 27.0 H, Glucose 102, Calcium 7.7 L Current Medications Acetaminophen (Tylenol) 1,000 mg PO Q8H [facility] Last Admin: 11/27/19 10:19 Dose: 1,000 mg Documented by: Aspirin (Ecotrin) 325 mg PO BID [facility] Last Admin: 11/27/19 10:26 Dose: 325 mg Documented by: Atorvastatin Calcium (Lipitor) 80 mg PO QHS [facility] Last Admin: 11/26/19 21:57 Dose: 80 mg Documented by: Celecoxib (Celebrex) 200 mg PO DAILY [facility] Enteral Nutritional Formula (Ensure Surgery) 237 ml PO TIDCM [facility] Last Admin: 11/27/19 07:49 Dose: 237 ml Documented by: Famotidine (Pepcid) 20 mg PO DAILY [facility] Last Admin: 11/27/19 07:49 Dose: 20 mg Documented by: Fenofibrate (Tricor) [facility] Last Admin: 11/27/19 07:48 Dose: 145 mg Documented by: Insulin Human Lispro (Humalog Kwikpen ([facility])) 1 - 6 unit SC Q4H PRN PRN; Protocol PRN Reason: BG>/= 180, SEE PROTOCOL Last Admin: 11/26/19 09:54 Dose: 1 unit Documented by: Ketorolac Tromethamine (Toradol ([facility])) 15 mg IV Q6H PRN PRN PRN Reason: Pain Score 1-5/10 Last Admin: 11/26/19 21:56 Dose: 15 mg Documented by: Latanoprost (Xalatan Opthalmic) 1 drop EACH EYE QHS [facility] Last Admin: 11/26/19 21:58 Dose: 1 drop Documented by: Lisinopril (Zestril) 10 mg PO DAILY [facility] Last Admin: 11/27/19 10:26 Dose: 10 mg Documented by: Metoprolol Tartrate (Lopressor (Beta Eve)) 25 mg PO BID [facility] Last Admin: 11/27/19 07:49 Dose: 25 mg Documented by: Morphine Sulfate () 2 - 4 mg IV Q2H PRN PRN PRN Reason: Pain Score 4-10/10 Ondansetron HCl (Zofran) 4 mg IV Q8H PRN PRN PRN Reason: NAUSEA Oxycodone HCl (Oxyir) 5 - 10 mg PO Q4H PRN PRN PRN Reason: Pain Score 4-10/10 Last Admin: 11/27/19 11:23 Dose: 10 mg Documented by: Promethazine HCl (Phenergan) 12.5 mg IM Q6H PRN PRN; Protocol PRN Reason: NAUSEA/VOMITING Senna/Docusate Sodium (Senokot-S, [place]-Colace) 2 tablet PO BID [facility] Last Admin: 11/27/19 07:50 Dose: 2 tablet Documented by: Timolol Maleate (Timoptic) 1 drop EACH EYE BID [facility] Last Admin: 11/27/19 10:19 Dose: 1 drop Documented by: STROKE Vital Signs/Narrative: Vital Signs Pulse BP 11/27/19 07:49 75 104/68 Assessment/Plan Hospitalist note: I am seeing this patient in conjunction with Marlo Horne. I independently seen and examined the patient. Progress note above, laboratory data and imaging studies reviewed and I concur with above treatment plan. This morning, patient complained of right hip pain after physical therapy but improved with pain medicine. No other complaints. Vital signs are stable. - Physical Exam General: Alert, Oriented x3, Cooperative, No apparent distress. HEENT: Atraumatic, PERRLA, EOMI. Neck: Supple, No JVD, Negative Carotid Bruits, Trachea Midline, Thyroid Normal. Lungs: Clear to auscultation, Normal air movement, No rhonchi, No wheeze, No rales. Cardiovascular: Regular rate, Regular Rhythm, Normal S1, Normal S2, PMI Normal. Abdomen: Bowel Sounds Present, Soft, Non Tender, Non-Distended, No Hepato- splenomegaly. Extremities: No clubbing, No cyanosis, No edema Skin: No rashes, No breakdown Neurological: Cranial nerves are intact, neuro grossly intact Vital Signs are stable. #1 status post minimally invasive anterior right total hip replacement: This was done for osteoarthritis, postoperative day 1. Patient started physical therapy, pain is well controlled. He is on IV morphine and OxyIR PRN for pain. His vital signs are stable. Routine blood work from today reviewed, remarkable for mild leukocytosis and sodium of 133 which is chronic. Orthopedic surgery on the case and managing. For medical standpoint, patient is stable to be discharged home, no changes to his previous home medications. #2 other chronic medical problems: Stable, continue current medications as above. This note was generated with [employer] dictation software. It may contain incorrect words, spelling, and punctuation that were not noted in checking the note before signing. Inpatient E&M: 20606 Subs Hosp L2
[2019-11-27] MEDS: oxyCODONE 5 MG Tablet PO (11:23)
[2019-11-27 13:53] VITALS: BP 124/45; PULSE 87; RESP 18; TEMP 37.3; O2SAT 90
== END 2019-11-27 14:31 | disposition home or self-care (01) ==
LOC: SDC 14:31 → MS3 14:31
PROVIDERS: Anesthesiology; Physician Assistant Surgical; Admitting Provider Specialist; PCP Family Medicine; Referring Provider Specialist; Visit Provider Specialist
PROC: (CPT 27284; principal; 2019-11-26 10:20)
DX: M16.11 Unilateral primary osteoarthritis, right hip (principal); Z11.59 Encounter for screening for other viral diseases; R94.31 Abnormal electrocardiogram [ECG] [EKG]; I10 Essential (primary) hypertension; E78.5 Hyperlipidemia, unspecified; I25.10 Atherosclerotic heart disease of native coronary artery without angina pectoris; Z95.2 Presence of prosthetic heart valve; Z95.5 Presence of coronary angioplasty implant and graft; Z79.899 Other long term (current) drug therapy; Z85.46 Personal history of malignant neoplasm of prostate; Z79.82 Long term (current) use of aspirin
CPT/HCPCS: 01214; 27130; 36415; 73501; 73502; 76000; 80048; 82962; 83735; 85025; 85027; 87081; 87635; 93005; 94799; 96361; 96365; 96366; 96375; 97110; 97116; 97162; 97166; 97530; 99218; 99251; C1776; J7120; G0378; G0379; G0463; J2405; U0003

== ENCOUNTER 2019-11-30 12:46 | Emergency (ER) | payer MEDICARE, SELFPAY ==
[2019-11-26 15:04] VITALS: BMI 35.2
[2019-11-30 12:48] VITALS: BP 134/68; PULSE 80; RESP 18; TEMP 36.3; O2SAT 95; BMI 34.9
--- NOTE | 2019-11-30 12:55 | VDLE_ITS ---
Reason For Study: Swelling RIGHT LEFT GSV is normal. CFV is compressible, spontaneous, phasic, CFV is compressible, spontaneous, phasic, competent, and demonstrates normal competent and demonstrates normal augmentation. augmentation. FV is compressible, spontaneous, phasic, competent and demonstrates normal augmentation. POP V is compressible, spontaneous, phasic, competent and demonstrates normal augmentation. T/P Trunk is compressible. PTV is compressible. RT PerV is compressible. Procedure Exam performed portable in ED. A preliminary report was called and/or faxed to Dr. Ospina. Interpretation Summary There is no evidence of right lower extremity deep vein thrombosis. Right great saphenous vein appears patent and compressible segmentally. Normal flow patterns left common femoral vein Ordering Physician: Zeeshan Ospina Referring Physician: Azar Corbett Performed By: Gladis Hobson, BELLO, RVT
--- NOTE | 2019-11-30 13:06 | ED.VISSUMM ---
- ER Visit Summary Date of Service: 11/30/19 Chief Complaint: Right leg swelling History of Present Illness: The patient is a 78 M who presents with right leg swelling that was noticed today. Patient had recent right total hip replacement. Patient admits to some mild pain. Patient describes the pain is dull and tight. Patient states the pain is worse with certain movements. Patient denies any paresthesias or weakness. Patient denies any fevers or chills. Patient denies any chest pain or shortness of breath. Physical Examination: Vital signs are stable. Patient is afebrile. Patient is in no acute distress. Musculoskeletal exam reveals edema of the right thigh and lower leg. There is some mild tenderness. There is no bony crepitance or step-off. Pedal pulses are equal bilaterally. Sensation was intact light touch in all digits. There is good range of motion of the right knee and right ankle. Test Results: Venous duplex of the right lower extremity was obtained. There is no evidence of DVT. Emergency Department Course and Treatment: Patient was advised of his findings. Patient was instructed to keep his right leg elevated. Patient was instructed to follow-up with his primary care physician and orthopedic surgeon as scheduled. Patient understood and was agreeable with the plan. All questions were answered. Disposition: Discharge home Impression: Right leg edema This note was generated with [employer] dictation software. It may contain incorrect words, spelling, and punctuation that were not noted in review of the chart prior to signing ED Disposition - Plan for ED Patient: Disposition: Home or Assisted Living Diagnosis: Edema of right lower leg Instructions: ED Peripheral Edema, Unilateral Referrals: Azar Corbett MD [Primary Care Provider] - 5-7 Days
[2019-11-30 14:43] VITALS: RESP 16
== END 2019-11-30 14:43 | disposition home or self-care (01) ==
PROVIDERS: Emergency Provider Emergency Medicine; PCP Family Medicine
DX: R60.0 Localized edema (principal); M79.604 Pain in right leg; Z96.641 Presence of right artificial hip joint; E78.00 Pure hypercholesterolemia, unspecified; Z79.82 Long term (current) use of aspirin; Z79.899 Other long term (current) drug therapy
CPT/HCPCS: 93971; 99283

== ENCOUNTER 2019-12-24 08:44 | Emergency (ER) | payer MEDICARE, SELFPAY ==
[2019-12-24 08:45] VITALS: BP 143/63; PULSE 89; RESP 22; TEMP 35.8; O2SAT 93; BMI 34.3
[2019-12-24 08:50] VITALS: BP 143/63; PULSE 89; RESP 22; TEMP 35.8; O2SAT 93
--- NOTE | 2019-12-24 09:00 | EKG12_ITS ---
Test Reason : SOB Blood Pressure : / mmHG Vent. Rate : 085 BPM Atrial Rate : 085 BPM P-R Int : 358 ms QRS Dur : 106 ms QT Int : 342 ms P-R-T Axes : 017 -48 115 degrees QTc Int : 406 ms Sinus rhythm with 1st degree A-V block Left axis deviation Left ventricular hypertrophy with repolarization abnormality Cannot rule out Septal infarct , age undetermined Abnormal ECG Confirmed by BOO SHEPPARD, EMMA ([id number]), editor farm journal KOKO COX ([id number]) on 12/29/2019 2:15:08 PM Referred By: REYES Confirmed By:EMMA HADDAD MD
--- NOTE | 2019-12-24 09:02 | ED.VIS.GEN ---
History of Present Illness Chief Complaint: Shortness of Breath Detail of Chief Complaint: Dyspnea, dyspnea on exertion Informant: Patient, Significant Other Onset: Days Context: Sudden Onset Timing: Continuous Quality: Respiratory Location: Respiratory Current Severity: Mild Maximum Severity: Moderate Worsened by: Dyspnea with minimal exertion Relieved by: Better to resolved with rest Associated Symptoms: Cough that is nonproductive Narrative: Patient is an elderly male who had a total hip arthroplasty performed by Dr. Van Corbett on November 25. He presents because of low pulse ox and blood pressure at the physician's office. Per old records baseline blood pressure is 138/82. He does report chills without fever. He denies headache, visual, ocular auditory symptoms. He denies chest discomfort of any type. He denies black or maroon stool. He denies vomiting. He denies urologic symptoms. He was recently seen because of lower extremity swelling to evaluate for DVT, which was negative. He has no known exposure to COVID-19. He has a history of cancer, coronary disease and recent total hip arthroplasty. Based on review of medications he has history of glaucoma. Prior similar symptoms: No Recent Illness/Hospitalization: Yes - Past Medical History (1) History of coronary artery disease Status: Acute (2) History of glaucoma Status: Acute Past Medical History - Allergies and Home Meds Allergies/Adverse Reactions: Allergies No Known Allergies Allergy (Verified 12/24/19 08:47) Primary Care Physician: Azar Corbett MD [Primary Care Provider] - Prior records reviewed: Yes Surgical History: total hip arthroplasty, - - Aortic valve surgery Lives: Spouse/ Significant Other Smoking Status: Never smoker Alcohol: Rare Drugs: None Review of Systems Respiratory: Reports: Dyspnea, Cough, Dyspnea on exertion, Orthopnea - Two-pillow orthopnea, which is new. Denies: Sputum, Paroxysmal nocturnal dyspnea Gastrointestinal: Denies: Abdominal pain, Nausea, Vomiting, Diarrhea, Melena, Hematochezia Genitourinary: Denies: Dysuria, Hematuria, Frequency Musculoskeletal: Reports: Swelling. Denies: Myalgias, Arthralgias, Neck pain Skin: Denies: Rash, Wounds Neurological: Denies: Headache, Numbness Psych: Denies: Depression Endocrine: Denies: Polyuria, Polydipsia Hematologic: Denies: Easy bruising, Easy bleeding Allergy: Denies: Uticaria, Swelling of the mouth Physical Exam Vital Signs/Narrative: Vital Signs Temp Pulse Resp BP Pulse Ox 12/24/19 08:50 96.4 F L 89 22 H 143/63 H 93 12/24/19 08:45 96.4 F L 89 22 H 143/63 H 93 Inital Vital Signs reviewed: Yes General: Well nourished, Well developed, Acute Distress Head: Normocephalic, Atraumatic Eyes: Perrl, EOMI. Negative for: Pale conjunctiva, Scleral icterus ENT: Moist mucous membranes, TM's clear, Nasal congestion. Negative for: No rhinorrhea Neck: Supple, Nontender, No lymphadenopathy, No JVD Cardiovascular: Regular rate, Regular rhythm, No murmurs, Normal S1, Normal S2 Respiratory: Chest nontender, Rales, Wheezing, Diminished, - - Tory findings are right lower lobe posteriorly with egophony. There are a few crackles noted at the left base as well.. Negative for: No distress, CTA bilaterally Abdomen: Soft, Nontender, Nondistended, Normal bowel sounds, No masses. Negative for: Hepatomegaly, Splenomegaly, Mass, Pulsatile mass Rectal: Deferred Back: Nontender, Normal Inspection. Negative for: CVA tenderness Extremities: Nontender, Edema. Negative for: No edema Skin: Normal color, No rash, No Trauma. Negative for: Cyanosis, Diaphoresis, Jaundice Neurological: Alert, Oriented x3, Cranial nerves II-XII grossly intact, Normal Strength, Normal Sensation Psychological: Normal affect, Normal Mood Diagnostic/Tx/Re-eval Chest X-Ray - ED: 2 View, Read by ED Physician, - - View chest x-ray was interpreted by me at 0935. Multiple lesions consistent with metastatic cancer. Radiologist noted lesions in the vertebral body which I did not notice initially. Impressions Chest X-Ray 12/24/19 09:14 IMPRESSION: Multiple bilateral pulmonary nodules suggestive of metastatic disease. This is worse in the right hemithorax. Findings suggestive of sclerotic metastasis involving the vertebrae. Electronically Signed: Ayan Roy, at 9:33 EDT , Service support , Chest CT 12/24/19 09:50 IMPRESSION: Multiple bilateral pulmonary nodules throughout both lungs worse in the right hemithorax. Patchy areas of alveolar disease throughout both lungs more prominent on the right side. Electronically Signed: Ayan Roy, at 12:08 EDT , Service support , Abdomen/Pelvis CT 12/24/19 09:55 IMPRESSION: Multiple pulmonary nodules as described. Findings suggestive of ankylosing spondylitis. Electronically Signed: Ayan Roy, at 12:13 EDT , Service support , ADDENDUM: 12/24/19 1223 12/24/19 09:14 Chest PA and Lateral [RAD] Stat 12/24/19 09:50 CT Chest [Chest WITH Contrast] [CT] Stat 12/24/19 09:55 Abdomen/Pelvis WITH Contrast [CT] Stat Laboratory Results 12/24/19 12/24/19 12/24/19 08:55 08:55 08:55 WBC 13.2 H RBC 3.24 L Hgb 9.5 L Hct 32.0 L MCV 98.8 H MCH 29.3 MCHC 29.7 L RDW Std Deviation 58.6 H RDW Coeff of Dre 16.5 H Plt Count 402 MPV 10.5 Immature Gran % (Auto) 0.500 Neut % (Auto) 52.5 Lymph % (Auto) 17.4 L [place] % (Auto) 7.4 Eos % (Auto) 21.6 H Baso % (Auto) 0.6 Absolute Neuts (auto) 6.9 Absolute Lymphs (auto) 2.30 Nucleated RBC % 0 Differential Comment COMMENT Diff Path Review May foll Sodium 137 Potassium 4.1 Chloride 105 Carbon Dioxide 24.0 Anion Gap 8 BUN 31 H Creatinine 1.35 H Estim Creat Clear Calc 40.12 Est GFR (MDRD) Af Amer 65 Est GFR (MDRD) Non-Af 54 L BUN/Creatinine Ratio 23.0 H Glucose 135 H Calcium 8.6 Total Bilirubin 1.40 H AST 19 ALT 16 Alkaline Phosphatase 61 Troponin I < 0.015 B-Natriuretic Peptide 122.1 H Total Protein 7.1 Albumin 3.2 Globulin 3.9 Albumin/Globulin Ratio 0.8 L - Medical Decision Making Diagnosis includes congestive heart failure, pneumonia, atelectasis, viral upper respiratory infection. Patient had recent venous duplex study to rule out DVT. Because he reports orthopnea BNP and troponin were obtained to assess for congestive heart failure and cardiac ischemia. Chest x-ray and appropriate labs were ordered. Spoke with Dr. Florence. Patient is scheduled to see Dr. Sharita Cantor tomorrow. Dr. Hernandez for urology was contacted. He will see patient and perform orchiectomy for tissue diagnosis. ED Disposition - Plan for ED Patient: Disposition: Home or Assisted Living Diagnosis: Metastatic malignant neoplasm Instructions: ED Tumor [facility] Referrals: Azar Corbett MD [Primary Care Provider] - Serge Casillas MD [STAFF PHYSICIAN] - 12/25/19 Jaime Hernandez MD [STAFF PHYSICIAN] - 3-5 Days Joel Corbett MD [STAFF PHYSICIAN] - Additional Instructions: Dr. Casillas's office staff will contact you today to notify you time of appointment for tomorrow. Call Dr. Hernandez's office for appointment to be seen in 3 to 5 days and biopsy of left testicle
--- NOTE | 2019-12-24 09:14 | RAD_ITS ---
STUDY: X-RAY CHEST REASON FOR EXAM: Male, 79 years old. SOB AND LOW PULSE OX. RALES, WHEEZING AND EGOPHONY RIGHT LOWER LOBE. OPEN HEART 2011. TECHNIQUE: PA and lateral views of the chest. COMPARISON: Comparison is made with prior study dated 09/30/2018. FINDINGS: EKG electrodes are seen. At this time, multiple nodular densities seen in both lungs more prominent in the right hemithorax. Metastatic disease should be ruled out. There is no demonstrated pleural abnormality. Sternal cerclage wires are present from a prior sternotomy. The patient is status post mitral valve replacement. Normal mediastinum and bette. Normal visualized pulmonary arteries. There is atherosclerotic tortuosity of the aortic arch and descending thoracic aorta. There are diffuse degenerative changes of the visualized thoracic spine. Sclerotic lesions seen in the thoracic vertebrae. Normal visualized ribs, clavicles, and shoulders. There is no demonstrated abnormality of the visualized soft tissue structures of the upper abdomen. RAD/Chest PA and Lateral IMPRESSION: Multiple bilateral pulmonary nodules suggestive of metastatic disease. This is worse in the right hemithorax. Findings suggestive of sclerotic metastasis involving the vertebrae. Electronically Signed: Ayan Roy, at 9:33 EDT , Service support ,
[2019-12-24 09:23] LABS: Absolute Neutrophil Count 6.9 X10^3/uL (2.0-7.7); Basophil# 0.08 X10^3/uL; Basophil% 0.6 % (0-1); Differential Indicated SCAN CRITERIA MET; Eosinophil# 2.85 X10^3/uL; Eosinophils% 21.6 % (0-5); Hemoglobin 9.5 g/dL (13.0-16.5); Lymphocyte % 17.4 % (19-41); Mean Corp Hgb Conc 29.7 g/dL (32-36); Mean Corpuscular Hgb 29.3 pg (27.0-32.0); Mean Corpuscular Volume 98.8 fL (80-94); Mean Platelet Vol. 10.5 fl (6.2-12.0); Monocyte# 0.98 X10^3/uL; Monocyte% 7.4 % (0-10); NRBC Flagged by Analyzer 0 % (0-5); Neutrophil # 6.94 X10^3/uL (2.7-7.7); Neutrophil % 52.5 % (47-70); POSITIVE DIFFERENTIAL YES; Platelet Count 402 K/mm3 (150-450); RBC Distribution Width CV 16.5 % (11.6-14.6); RBC Distribution Width SD 58.6 fl (35.1-43.9); Red Blood Count 3.24 M/mm3 (4.6-6.2); White Blood Count 13.2 K/mm3 (4.4-11.0)
[2019-12-24 09:36] LABS: ALB/GLOB Ratio 0.8 RATIO (0.9-2.4); AST(SGOT) 19 U/L (15-37); Alanine Aminotransfer ALT/SGPT 16 U/L (16-61); Albumin, Serum 3.2 g/dL (3.2-5.0); Alkaline Phosphatase 61 U/L (45-117); Anion Gap 8 (5-15); BUN 31 mg/dL (7-18); Calcium,Total 8.6 mg/dL (8.5-10.1); Chloride 105 mmol/L (98-107); Creatinine, Serum 1.35 mg/dL (0.70-1.30); EST Glomerular Filtration Rate 54 mL/min (>60); Est Glom Filt Rate - Afr Amer 65 mL/min (>60); Estimated Creatinine Clearance 40.12 ml/min; Globulin 3.9 g/dL (2.2-4.2); Glucose 135 mg/dL (74-106); Potassium 4.1 mmol/L (3.5-5.1); Protein, Total 7.1 g/dL (6.4-8.2); Sodium Level 137 mmol/L (136-145)
--- NOTE | 2019-12-24 09:50 | CT_ITS ---
STUDY: CT CHEST WITH CONTRAST REASON FOR EXAM: Male, 79 years old. SOB, metastatic disease on CXR, staging. Prior hx prostate cancer 20 years ago with surgery only. Prior heart valve replaced, coronary stent, right hip replacement 3 weeks ago. RADIATION DOSAGE (If Supplied By Facility): CTDIvol = ( 18.81 ) mGy, DLP = ( 2376.47 ) mGycm TECHNIQUE: Transaxial imaging was performed following intravenous administration of Oral and amp; IV Gastrografin and amp; 100mL Isovue-300. Multiplanar coronal and sagittal images were reformatted. Individualized dose optimization techniques were used for this CT. COMPARISON: Comparison is made with prior chest radiograph done earlier today. FINDINGS: There are multiple bilateral pulmonary nodules within both lungs. There is also evidence of multiple areas of the focal alveolar disease scattered throughout both lungs more prominent in the right upper and right lower lobes. There is no demonstrated pleural abnormality. There are calcifications of the coronary arteries. Sternal cerclage wires are present from a prior sternotomy. Prior aortic valve replacement. Normal mediastinum. Normal hilar regions. Normal enhanced pulmonary arteries. There is atherosclerotic calcification of the aortic arch with tortuosity and elongation of the aortic arch and descending thoracic aorta. There are multi-level degenerative changes of the thoracic spine. Scattered focal areas of sclerosis seen throughout the thoracic vertebrae. 1.8 cm hypodensity in the right adrenal gland suggestive of a small adrenal adenoma. CT/Chest WITH Contrast IMPRESSION: Multiple bilateral pulmonary nodules throughout both lungs worse in the right hemithorax. Patchy areas of alveolar disease throughout both lungs more prominent on the right side. Electronically Signed: Ayan Roy, at 12:08 EDT , Service support ,
[2019-12-24 09:52] VITALS: BP 110/66; BP 143/63; PULSE 66; PULSE 89; RESP 16; RESP 22; TEMP 35.8; O2SAT 93
[2019-12-24 09:54] LABS: BNP,B-Type NATRIURETIC PEPTIDE 122.1 pg/mL (0-100)
--- NOTE | 2019-12-24 09:55 | CT_ITS ---
STUDY: CT ABDOMEN AND PELVIS WITH CONTRAST REASON FOR EXAM: Male, 79 years old. SOB, metastatic disease on CXR, staging. Prior hx prostate cancer 20 years ago with surgery only. Prior heart valve replaced, coronary stent, right hip replacement 3 weeks ago. RADIATION DOSAGE (If Supplied By Facility): CTDIvol = ( 18.81 ) mGy, DLP = ( 2376.47 ) mGycm TECHNIQUE: Transaxial images were obtained from the dome of the diaphragm to the symphysis pubis without oral contrast. Oral and amp; IV Gastrografin and amp; 100mL Isovue-300 was administered. Sagittal and coronal images were reconstructed. Individualized dose optimization techniques were used for this CT. COMPARISON: None. FINDINGS: Multiple nodules in both lower lobes with areas of alveolar infiltrates in both lower lobes worse on the right side. Minimal right pleural thickening. Coronary artery calcification. Normal liver. Normal gallbladder and extrahepatic biliary system. There is a 1.6 cm x 1.9 cm rim-enhancing nodule in the inferior medial aspect of the spleen. This may represent an hemangioma. Normal pancreas. There is a small, circumscribed, smooth, low attenuation right adrenal mass, consistent with an adrenal adenoma. It measures 1.3 cm. Normal left adrenal gland. Normal right kidney. Normal left kidney. Normal visualized stomach. Normal small intestine. Normal colon. The appendix is visualized and appears normal. There is diffuse atherosclerotic calcification of the abdominal aorta. 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 Small amount of the mural thrombus is seen. Normal inferior vena cava. There is borderline retroperitoneal lymphadenopathy with enlarged nodes no greater than 10mm in the short axis diameter. Normal urinary bladder. The patient is status post prostatectomy. Small inguinal hernias containing fat. There are diffuse degenerative changes of the visualized lumbar spine. Fusion of the left sacroiliac joint. Degenerative changes of the right sacroiliac joint. Findings suggestive of ankylosing spondylitis. CT/Abdomen/Pelvis WITH Contrast IMPRESSION: Multiple pulmonary nodules as described. Findings suggestive of ankylosing spondylitis. Electronically Signed: Ayan Roy, at 12:13 EDT , Service support ,
[2019-12-24 10:00] VITALS: BP 112/65; BP 143/63; PULSE 84; PULSE 89; RESP 21; RESP 22; TEMP 35.8; O2SAT 93; O2SAT 94
[2019-12-24 11:00] VITALS: BP 128/66; PULSE 75; RESP 18; O2SAT 99
[2019-12-24 12:00] VITALS: BP 118/67; PULSE 84; RESP 16; O2SAT 96
[2019-12-26 12:22] LABS: Pathologist Review Reviewed
== END 2019-12-24 13:45 | disposition home or self-care (01) ==
PROVIDERS: Emergency Provider Emergency Medicine; PCP Family Medicine
DX: C79.9 Secondary malignant neoplasm of unspecified site (principal); R06.00 Dyspnea, unspecified; R05 Cough; I25.10 Atherosclerotic heart disease of native coronary artery without angina pectoris; H40.9 Unspecified glaucoma; Z96.641 Presence of right artificial hip joint; Z95.2 Presence of prosthetic heart valve; Z95.5 Presence of coronary angioplasty implant and graft; Z79.899 Other long term (current) drug therapy
CPT/HCPCS: 71046; 71260; 74177; 80053; 83880; 84484; 85025; 93005; 96360; 96361; 99284; J7030; Q9967; A4216

== ENCOUNTER 2019-12-26 14:10 | Day surgery (SDC) | payer MEDICARE, SELFPAY ==
[2019-12-26] VITALS (8 sets, daily range): BP systolic 89–101; BP diastolic 49–62; PULSE 20–95; RESP 16–100; TEMP 36.6–36.9; O2SAT 84–96; BMI 36.2
--- NOTE | 2019-12-26 | IMM_PTH ---
PATIENT: KAM LEVIN LOC: [facility] [place] U#:[id number] AGE/SX: 79/M ROOM: RE12/26/[address]: Dr. Jaime Hernandez MD : [id number] BED: DIS: 12/26/2019 SPEC #: [id number] RECD: 12/31/19 13:23 STATUS: HONG REQ #: [id number] TRACEE: 12/26/19 00:[address]: Jaime Hernandez DEPT: IMMUNOHISTOCHEMISTRY RECD BY: Angelica Sanford ENTERED: 12/31/19 13:27 SP TYPE: IMMUNO OTHR DR: Dr. Azar Corbett MD Tissues: Testis, NOS Procedures: CD31 (add) CK7 (add) CALVIN (add) FACTOR VIII (add) Pankeratin (add) GATA3 (add) CD30 (initial) PHYSICIAN & INSTITUTION [place] [id number] SPECIMEN INFORMATION: Tissue Source: Left testicle Clinical Info: Left testicular mass Specimen Number: [id number] #[id number] CPT code: 83095, 53558 x6 METHODOLOGY: Deparaffinized sections of prefer/formalin-fixed tissue or PAP/DQ stained slides are incubated with monoclonal/polyclonal antibodies/oligonucleotide probes. Localization is made via biotin free immunoperoxidase method. Appropriate controls are performed and reacted as expected. Results on target cell population are indicated in the following table: RESULTS: ANTIBODY / CLONE RESULT Block 2 CD30 (Chetan-H2) negative Factor VIII (R Ag) positive CD31 (RADHA/70A) positive CALVIN (E29) positive AE1-3 (AE1/AE3/PCK26) positive CK7 (OV-TL12/30) positive GATA3 (L50-823) positive These tests were developed and their performance characteristics determined by [facility]. They may not have been cleared or approved by the U.S. Food and Drug Administration. The FDA has determined that such clearance or approval is not necessary. The above immunohistochemical/dualISH markers are ordered and reviewed by the Pathologist. INTERPRETATION: Left testicle, orchiectomy: Mixed germ cell tumor.
[2019-12-26] MEDS: Lactated Ringers 1,000 ML 100 ML IV ×2 (14:50→16:19)
--- NOTE | 2019-12-26 15:30 | HP.PCM_ITS ---
History of Present Illness Date of Admission: 12/26/19 Chief Complaint: Left testicular mass The patient is a 79 year old male who presented with shortness of breath demonstrated multiple pulmonary nodules consistent with possible lung cancer but he also has a mass in the left testicle with a hydrocele we can proceed with a left orchiectomy. Past Medical History Allergies No Known Allergies Allergy (Verified 12/26/19 14:44) Home Medications: Ambulatory Orders Medication Instructions Recorded Latanoprost 0.005% [Xalatan 1 drp EACH EYE QHS 09/30/18 Opthalmic] Lisinopril [Prinivil] 10 mg PO DAILY 09/30/18 Metoprolol Tartrate 25 mg PO BID 09/30/18 Timolol 0.5% [Timoptic] 1 drp EACH EYE BID 09/30/18 Fenofibric Acid (Choline) 135 mg PO DAILY 11/17/19 [Fenofibric Acid] Rosuvastatin Calcium [Crestor] 40 mg PO DAILY 11/17/19 Doxepin HCl 100 mg PO QHS 12/24/19 Acetaminophen [Tylenol] 1,000 mg PO Q8H PRN 12/26/19 Senna/Docusate Sodium [Senokot-S] 2 tab PO BID PRN 12/26/19 Surgical History: total hip arthroplasty, - - Aortic valve surgery Smoking Status: Never smoker Tobacco Use: Non-smoker Review of Systems Constitutional: Denies: Chills, Fever, Weight Change HEENT: Denies: Head Aches, Sinus Congestion, Sinus Drainage Cardiovascular: Denies: Chest Pain, Palpitations Respiratory: Denies: Cough, Shortness of breath at rest, Sputum production Gastrointestinal: Denies: Abdominal Pain, Nausea, Vomiting Genitourinary: Denies: Dysuria Musculoskeletal: Denies: Joint Pain, Joint Tenderness Skin: Denies: Rash, Wounds Neurological: Denies: Numbness, Tingling, Focal weakness Psychiatric: Denies: Anxiety, Depression, Homicidal Ideations, Suicidal Id eations Hematologic/ Lymphatic: Denies: Easy Bruising, Easy Bleeding VTE Information - Inpt Only VTE Present on Admission: No VTE Mechan Device Prophylaxis: SCD's - Physical Exam Vitals/I&O's: Vital Signs Temp Pulse Resp BP Pulse Ox 97.8 F 94 16 100/49 L 94 12/26/19 14:45 12/26/19 14:45 12/26/19 14:45 12/26/19 14:45 12/26/19 14:45 Oxygen Delivery Method Room Air Weight: 98.8 kg Body Mass Index (BMI) 36.2 Finger Stick Blood Glucose 137 General: Alert, Oriented x3, Cooperative HEENT: Atraumatic, PERRLA, EOMI, Normocephalic Neck: Supple, No JVD, Negative Carotid Bruits Lungs: Clear to auscultation, Normal air movement Cardiovascular: Regular rate, No murmurs Abdomen: Bowel Sounds Present, Soft, Non Tender Extremities: No edema, Capillary Refill Less than 3 Seconds Skin: No rashes, No breakdown Musculoskeletal: No Tenderness to Palpation of Joints or Extremities Neurological: Cranial nerves II-XII grossly intact Psych/Mental Status: Normal Affect, Appropriate Current Medications Lactated Ringer's () 1,000 mls @ 100 mls/hr IV .Q10H KRISS Last Admin: 12/26/19 14:50 Dose: 100 mls/hr Documented by: Assessment/Plan All Active Problems History of coronary artery disease (Acute) History of glaucoma (Acute) 79-year-old male with a left testicular mass plan to proceed with a left orchiectomy.
--- NOTE | 2019-12-26 15:33 | DCINST_ITS ---
Discharge Diet: Light diet - advance as tolerated Discharge Activity: May Not Drive, May not drive while taking narcotic pain medications., May Shower Call your doctor if your incision/area has: Continuous Slow Oozing, Sudden Increased Bleeding, Increased Pain/ Swelling, Increased Redness, Foul Smelling Discharge, Swelling at the incision site Call your doctor if you observe: Fever of 101 or Higher Suture Line Care: Avoid Pulling/Pushing, Avoid Pinching/Bending Allergies/Adverse Reactions: Allergies No Known Allergies Allergy (Verified 12/26/19 14:44) Medications to take at Discharge Latanoprost 0.005% [Xalatan Opthalmic] 1 drp EACH EYE QHS 09/30/18 Lisinopril [Prinivil] 10 mg PO DAILY 09/30/18 Metoprolol Tartrate 25 mg PO BID 09/30/18 Timolol 0.5% [Timoptic] 1 drp EACH EYE BID 09/30/18 Fenofibric Acid (Choline) [Fenofibric Acid] 135 mg PO DAILY 11/17/19 Rosuvastatin Calcium [Crestor] 40 mg PO DAILY 11/17/19 Doxepin HCl 100 mg PO QHS 12/24/19 Acetaminophen [Tylenol] 1,000 mg PO Q8H PRN 12/26/19 Senna/Docusate Sodium [Senokot-S] 2 tab PO BID PRN 12/26/19 Primary Care Physician: Azar Corbett MD [Primary Care Provider] - Test Results: Test results from this visit will be discussed in further detail at your follow- up appointment, if applicable. Please Follow Up With: Jaime Hernandez MD When: in 2 weeks, please call to make an appointment.
--- NOTE | 2019-12-26 16:05 | PCM.OPRPT ---
Report of Operation Date of Procedure: 12/26/19 Pre-Operative Diagnosis: Left testicular mass Post-Operative Diagnosis: Same Surgery/Procedure Performed:: Left orchiectomy Description of Surgical Findings:: 79-year-old male was found to have a mass in the left testicle he also mass in the nodules in the lungs were to proceed with a left orchiectomy today we suspect that the testicle mass could be either testicle cancer or metastatic disease but the other possibility discussed with the patient is possible the just an infected testicle the looks mass like on ultrasound it could just be a nonmalignant testicle that just infected he does have a hydrocele around this mass. Organ to proceed with a left simple orchiectomy today. 79-year-old male taken back to the operating room after smooth induction of general anesthesia he was placed in dorsolithotomy position. The scrotum and penis were shaved prepped and draped in usual sterile fashion made a midline incision in the midline raphae of the scrotum. Dissected down to the hydrocele sac on the left side I used electrocautery to dissect all the attachments to the sac came down to the cord went to the cord and took the cord and several pieces with hemostats then placed a clamp across the entire sac and excised the testicle from the left hemiscrotum I then suture ligated the cord each segment with 3-0 chromic stitches once the cord was suture ligated there was no bleeding we used electrocautery to then hemostasis I then closed the midline incision with a running 4-0 chromic stitch in a running 4-0 chromic stitch on the skin flaps and dressings were placed the specimen was a large hydroceles sac with a testicle mass this was sent off as a permanent section in formalin he will follow-up next week for postop check. Type of Anesthesia:: General Drains: none - Admit VTE Documentation VTE Present on Admission: No VTE Mechan Device Prophylaxis: SCD's
[2019-12-26] MEDS: Bupivacaine Mpf 0.5% 30 ML VIAL (16:06)
--- NOTE | 2019-12-26 16:30 | TEST_PTH ---
PATIENT: KAM LEVIN LOC: [facility] [place] U#:[id number] AGE/SX: 79/M ROOM: RE12/26/[address]: Dr. Jaime Hernandez MD : [id number] BED: DIS: 12/26/2019 SPEC #: [id number] RECD: 12/29/19 09:26 STATUS: HONG VANCE #: [id number] TRACEE: 12/26/19 16:[address]: Jaime Hernandez DEPT: SURGICAL PATHOLOGY RECD BY: Patito Martinez ENTERED: 12/29/19 10:59 SP TYPE: TESTICLE OTHR DR: Dr. Azar Corbett MD Tissues: Testis, NOS Procedures: Surgery Specimen Level HEADER OPERATION: Simple orchiectomy PRE-OP DIAGNOSIS: Left testicular mass TISSUE SUBMITTED: Left testicle MICROSCOPIC DIAGNOSIS Left testicle, orchiectomy: Mixed germ cell tumor See cancer checklist below. 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 Regional lymph nodes - not submitted Serum tumor markers - LDH, HCG and AFP - not performed PATHOLOGIC STAGE: pT1b Nx Mx Case is seen in consultation with Dr. Rondon of [employer] Full report is viewable in EMR. The above summary is in compliance with [employer] (CAP) Cancer Protocols Checklist and [place] Joint Committee on Cancer (AJCC), Staging Manual, 8th Ed. Immunohistochemistry ([id number]) supports the above diagnosis. MICROSCOPIC DESCRIPTION Slides are reviewed. GROSS DESCRIPTION Received in fixative is one container labeled with the patient's name and designated left testicle. The specimen consists of a teste with surround capsule measuring 10 x 8.5 x 5.2 cm and weighing 209 gm. The external surface is inked in black ink. The presumed margin of resection is inked in red ink. The specimen is sectioned to reveal the space between the tunica to contain mucoidy yellow fluid. The teste proper measures 6.2 x 4.5 x 4 cm. Sectioning of the teste reveal the entire cut surface to be hemorrhagic, dark garcia in color with foci of nodularities ranging in size from 0.5 to 1.5 cm. No distinct epididymis or testes are identified. The process involves the entire (100%) of the testes. [employer] sections are submitted in 13 cassettes as follows: 1 - margin of resection, 2 - tunica vaginalis, membrane roll, 4-13 - correspondence representative sections of testes. / DAILY:seth 12/30/19 TC:0 CPT: 17563
== END 2019-12-26 18:44 | disposition home or self-care (01) ==
LOC: SDC 14:13 → AC 14:13
PROVIDERS: PCP Family Medicine; Referring Provider Urology; Visit Provider Urology
PROC: (CPT 54520; principal; 2019-12-26 16:15)
DX: C62.92 Malignant neoplasm of left testis, unspecified whether descended or undescended (principal); I10 Essential (primary) hypertension; I25.10 Atherosclerotic heart disease of native coronary artery without angina pectoris; H40.9 Unspecified glaucoma; K21.9 Gastro-esophageal reflux disease without esophagitis; E78.00 Pure hypercholesterolemia, unspecified; Z85.46 Personal history of malignant neoplasm of prostate; Z79.82 Long term (current) use of aspirin; Z79.899 Other long term (current) drug therapy
CPT/HCPCS: 00920; 54520; 88309; 88341; 88342; J7120; J2405

== ENCOUNTER 2019-12-30 10:13 | Emergency (ER) | payer MEDICARE, SELFPAY ==
[2019-12-26 14:45] VITALS: BMI 36.2
[2019-12-30 10:14] VITALS: BP 111/63; PULSE 91; RESP 16; TEMP 37.1; O2SAT 85; BMI 35.6
[2019-12-30 10:19] VITALS: O2SAT 85
--- NOTE | 2019-12-30 10:27 | RAD_ITS ---
STUDY: X-RAY CHEST REASON FOR EXAM: Male, 79 years old. SOB SINCE . STENT ADDED IN 2007. HEART VALVE 2011. TECHNIQUE: Frontal view COMPARISON: 12/24/2019. FINDINGS: Stable sternotomy wires. The lungs are expanded. Persistent pulmonary nodules bilaterally with interval increasing patchy infiltrates. Normal size heart. Normal mediastinum and bette. Normal visualized pulmonary arteries. Normal visualized aortic arch and descending thoracic aorta. Degenerative changes of the thoracic spine. Normal visualized ribs, clavicles, and shoulders. There is no demonstrated abnormality of the visualized soft tissue structures of the upper abdomen. RAD/Chest 1 View (Portable) IMPRESSION: Persistent pulmonary nodules bilaterally with interval increasing patchy infiltrates. Electronically Signed: Brendon Chadwick DO at 11:20 EDT Tel [phone], Service support ,
--- NOTE | 2019-12-30 10:27 | EKG12_ITS ---
Test Reason : SOB Blood Pressure : / mmHG Vent. Rate : 089 BPM Atrial Rate : 089 BPM P-R Int : 368 ms QRS Dur : 104 ms QT Int : 324 ms P-R-T Axes : -27 -46 110 degrees QTc Int : 394 ms Sinus rhythm with 1st degree A-V block Left axis deviation ST & T wave abnormality, consider lateral ischemia Abnormal ECG Confirmed by BOO SHEPPARD, EMMA ([id number]), makeup editor KOKO COX ([id number]) on 12/31/2019 9:39:28 AM Referred By: BB Confirmed By:EMMA HADDAD MD
--- NOTE | 2019-12-30 10:28 | ED.DCSUM_ITS ---
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 Casillas after discussing with patient/family over the phone, with a note of inpatient hospice. He has had no chest pain. His leg edema has been worse. He had a total hip performed a month ago and all of this basically started after that, and he was subsequently diagnosed with these issues as above. In discussing with the patient and his daughter, certainly they are considering inpatient hospice, but they do not know the diagnosis, prognosis, and/or treatment options for sure. However, they did already follow-up with Dr. Casillas once, he was thought not to likely tolerate palliative chemotherapy given his age and comorbidities if this is metastatic lung cancer, and other palliative options were to be discussed at his next follow-up appointment which has yet to happen. He had an orchiectomy 4 days ago; the pathology has not yet been reported. Within the past week or 2, patient had negative lower extremity ultrasound ruling out DVTs. He had a chest CT here, but it was not CT angiography. - Past Medical History (1) History of coronary artery disease Status: Chronic (2) History of glaucoma Status: Chronic Past Medical History - Allergies and Home Meds Allergies/Adverse Reactions: Allergies No Known Allergies Allergy (Verified 12/26/19 14:44) Primary Care Physician: Azar Corbett MD [Primary Care Provider] - Surgical History: total hip arthroplasty, - - Aortic valve surgery Lives: With Family Smoking Status: Never smoker Review of Systems General: Reports: Malaise. Denies: Chills, Fever, Sweats Eyes: Denies: Visual changes - bilaterally, Diplopia ENT: Denies: Bilateral ear pain, Rhinorrhea, Sore throat Cardiovascular: Denies: Chest pain, Palpitations Respiratory: Reports: Dyspnea, Cough, Sputum, Dyspnea on exertion, Orthopnea Gastrointestinal: Denies: Abdominal pain, Nausea, Vomiting, Diarrhea, Melena, Hematochezia Genitourinary: Denies: Dysuria, Hematuria, Frequency Musculoskeletal: Reports: Swelling. Denies: Myalgias, Back pain, Extremity Pain Skin: Denies: Rash, Wounds Neurological: Denies: Headache, Weakness, Numbness Physical Exam Vital Signs/Narrative: Vital Signs Temp Pulse Resp BP Pulse Ox 12/30/19 10:14 98.8 F 91 16 111/63 85 Inital Vital Signs reviewed: Yes General: Well nourished, Well developed, Obese, No Acute Distress Head: Normocephalic, Atraumatic Eyes: Perrl, EOMI ENT: Moist mucous membranes, No rhinorrhea Neck: Supple, Nontender, No JVD Cardiovascular: Regular rate, Regular rhythm, Murmur - systolic LLSB Respiratory: No distress, CTA bilaterally, Chest nontender Abdomen: Soft, Nontender, Nondistended, Normal bowel sounds Back: Nontender, Normal Inspection Extremities: Nontender, Edema - 2+ bLE, symmetric Skin: Normal color, No rash, No Trauma Neurological: Alert, Oriented x3, Cranial nerves II-XII grossly intact, Normal Strength, Normal Sensation Psychological: Normal affect, Normal Mood Diagnostic/Tx/Re-eval Chest X-Ray - ED: 1 View, Read by ED Physician, - - Bilateral diffuse nodules/metastatic disease, possibly with worsening alveolar infiltrates on the right compared with before. Radiology result pending. Laboratory Tests 12/30/19 12/30/19 Range/Units 10:20 10:20 WBC 10.6 (4.4-11.0) K/mm3 RBC 2.89 L (4.6-6.2) M/mm3 Hgb 8.3 L (13.0-16.5) g/dL Hct 28.5 L (40-54) % MCV 98.6 H (80-94) fL MCH 28.7 (27.0-32.0) pg MCHC 29.1 L (32-36) g/dL RDW Std Deviation 60.7 H (35.1-43.9) fl RDW Coeff of Dre 17.1 H (11.6-14.6) % Plt Count 431 (150-450) K/mm3 MPV 10.3 (6.2-12.0) fl Immature Gran % (Auto) 0.800 (0.0-0.9) % Neut % (Auto) 58.7 (47-70) % Lymph % (Auto) 19.1 (19-41) % [place] % (Auto) 7.6 (0-10) % Eos % (Auto) 13.0 H (0-5) % Baso % (Auto) 0.8 (0-1) % Absolute Neuts (auto) 6.2 (2.0-7.7) X10^3/uL Absolute Lymphs (auto) 2.02 (0.83-4.51) X10^3/uL Nucleated RBC % 0 (0-5) % Sodium 136 (136-145) mmol/L Potassium 4.4 (3.5-5.1) mmol/L Chloride 104 (98-107) mmol/L Carbon Dioxide 27.0 (21.0-32.0) mmol/L Anion Gap 5 (5-15) BUN 32 H (7-18) mg/dL Creatinine 1.19 (0.70-1.30) mg/dL Estim Creat Clear Calc 42.35 ml/min Est GFR (MDRD) Af Amer 75 (>60) mL/min Est GFR (MDRD) Non-Af 62 (>60) mL/min BUN/Creatinine Ratio 26.9 H (10-20) RATIO Glucose 148 H (74-106) mg/dL Calcium 8.6 (8.5-10.1) mg/dL Total Bilirubin 1.10 H (0.20-1.00) mg/dL AST 19 (15-37) U/L ALT 16 (16-61) U/L Alkaline Phosphatase 55 (45-117) U/L Total Protein 6.5 (6.4-8.2) g/dL Albumin 2.8 L (3.2-5.0) g/dL Globulin 3.7 (2.2-4.2) g/dL Albumin/Globulin Ratio 0.8 L (0.9-2.4) RATIO - Medical Decision Making After further discussions with family, although it is not available in the EMR for my review, daughter was told that the pathology returned this morning 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 Therefore, at this time, patient and family are comfortable avoiding CT angiography to look for pulmonary embolus, as they would not want him to be on blood thinners at this time anyway. I think that is reasonable. Patient is comfortable on oxygen, satting at 95% on 2 L nasal cannula at this time. I think it would be reasonable to put him on antibiotics; if there is a small single or multiple postobstructive infiltrate, this could decrease his dyspnea and oxygen requirement. Discussed with hospice, they evaluated in the ED, and they were going to have him go home on hospice with further outpatient evaluation and treatment. He currently is on Cipro, that is postop since his o rchiectomy, and has several pills left. I think he can finish that, we will also prescribe him a Z-Kwasi as above. 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
[2019-12-30 10:33] VITALS: O2SAT 95
[2019-12-30 10:36] LABS: Absolute Lymphocyte Count 2.02 X10^3/uL (0.83-4.51); Absolute Neutrophil Count 6.2 X10^3/uL (2.0-7.7); Basophil# 0.08 X10^3/uL; Basophil% 0.8 % (0-1); Eosinophil# 1.38 X10^3/uL; Hematocrit 28.5 % (40-54); Hemoglobin 8.3 g/dL (13.0-16.5); Lymphocyte # 2.02 X10^3/ul (4.0); Lymphocyte % 19.1 % (19-41); Mean Corp Hgb Conc 29.1 g/dL (32-36); Mean Corpuscular Hgb 28.7 pg (27.0-32.0); Mean Corpuscular Volume 98.6 fL (80-94); Mean Platelet Vol. 10.3 fl (6.2-12.0); Monocyte# 0.81 X10^3/uL; Monocyte% 7.6 % (0-10); NRBC Flagged by Analyzer 0 % (0-5); Neutrophil # 6.22 X10^3/uL (2.7-7.7); Neutrophil % 58.7 % (47-70); Platelet Count 431 K/mm3 (150-450); RBC Distribution Width CV 17.1 % (11.6-14.6); RBC Distribution Width SD 60.7 fl (35.1-43.9); Red Blood Count 2.89 M/mm3 (4.6-6.2); White Blood Count 10.6 K/mm3 (4.4-11.0)
[2019-12-30 10:49] LABS: ALB/GLOB Ratio 0.8 RATIO (0.9-2.4); AST(SGOT) 19 U/L (15-37); Alanine Aminotransfer ALT/SGPT 16 U/L (16-61); Albumin, Serum 2.8 g/dL (3.2-5.0); Alkaline Phosphatase 55 U/L (45-117); Anion Gap 5 (5-15); BUN 32 mg/dL (7-18); BUN/Creat Ratio 26.9 RATIO (10-20); Calcium,Total 8.6 mg/dL (8.5-10.1); Chloride 104 mmol/L (98-107); Creatinine, Serum 1.19 mg/dL (0.70-1.30); EST Glomerular Filtration Rate 62 mL/min (>60); Est Glom Filt Rate - Afr Amer 75 mL/min (>60); Estimated Creatinine Clearance 42.35 ml/min; Globulin 3.7 g/dL (2.2-4.2); Glucose 148 mg/dL (74-106); Potassium 4.4 mmol/L (3.5-5.1); Protein, Total 6.5 g/dL (6.4-8.2); Sodium Level 136 mmol/L (136-145)
--- NOTE | 2019-12-30 11:15 | NURSING ---
FAXED CHART AND DR TO REPORT TO HOSPICE
[2019-12-30 11:57] VITALS: BP 95/62; PULSE 84; RESP 20; O2SAT 95
--- NOTE | 2019-12-30 12:05 | NURSING ---
HOSPICE HERE FOR PATIENT
[2019-12-30 13:30] VITALS: BP 113/63; PULSE 84; RESP 16; O2SAT 94
--- NOTE | 2019-12-30 14:07 | ED.RN ---
Report to [facility] with [facility].
== END 2019-12-30 14:07 | disposition home or self-care (01) ==
PROVIDERS: Emergency Provider Emergency Medicine; PCP Family Medicine
DX: C78.00 Secondary malignant neoplasm of unspecified lung (principal); R09.02 Hypoxemia; C62.90 Malignant neoplasm of unspecified testis, unspecified whether descended or undescended; E66.9 Obesity, unspecified; R01.1 Cardiac murmur, unspecified; H40.9 Unspecified glaucoma; I25.10 Atherosclerotic heart disease of native coronary artery without angina pectoris; Z79.899 Other long term (current) drug therapy
CPT/HCPCS: 71045; 80053; 85025; 93005; 99285; A4216